=== PATIENT | male | born 1975 | race Caucasian/White ===

== ENCOUNTER 2025-02-15 03:27 | Observation (INO) | payer OTHER, SELFPAY ==
[2025-02-14 20:29] VITALS: BP 144/91
[2025-02-14 21:00] VITALS: BMI 39.9
[2025-02-14 21:01] VITALS: BP 118/77
[2025-02-14 21:09] LABS: % Basophils 0.3 % (0-2); % Eosinophils 4.4 % (0-6); % Immature Granulocytes 0.6 % (0-0.5); % Lymphocytes 29.9 % (20.5-51.1); % Monocytes 8.4 % (1.7-9.3); % Neutrophils 56.4 % (42.2-75.2); Absolute Eosinophils 0.4 10^3/uL (0-0.7); Absolute Immature Granulocytes 0.1 10^3/uL (0-0.05); Absolute Lymphocytes 2.7 10^3/uL (1.2-3.4); Absolute Monocytes 0.8 10^3/uL (0.1-0.6); Absolute Neutrophils 5.1 10^3/uL (1.4-6.5); Hematocrit 43.2 % (39.0-52.0); Hemoglobin 14.8 g/dL (13.0-18.0); Mean Corp Hgb Conc. 34.3 g/dL (33.0-37.0); Mean Corpuscular Hgb 32.2 pg (27.0-31.0); Mean Corpuscular Volume 94.1 fL (80.0-94.0); Mean Platelet Volume 10.6 fL (7.4-10.4); Nucleated Red Blood Cells % 0 % (-); Platelet Count 158 10^3/uL (130-400); Red Blood Cell Count 4.59 10^6/uL (4.70-6.10); Red Cell Dist. Width 13.2 % (11.5-14.5); White Blood Cell Count 9.1 10^3/uL (4.8-10.8)
[2025-02-14 21:33] LABS: ALT (SGPT) 40 U/L (0-50); AST (SGOT) 28 U/L (17-59); Albumin 4.1 g/dl (3.5-5.0); Alkaline Phosphatase 83 U/L (38-126); Blood Urea Nitrogen 11 mg/dl (9-20); Calcium 9.2 mg/dl (8.4-10.2); Carbon Dioxide 37 mmol/L (22-30); Chloride 99 mmol/L (98-107); Estimated Creatinine Clearance > 125 ml/min; Glucose 104 mg/dl (70-99); Lipase 41 U/L (23-300); Potassium 3.9 mmol/L (3.5-5.1); Sodium 142 mmol/L (135-145); Total Bilirubin 0.4 mg/dl (0.2-1.3); Total Protein 6.9 g/dl (6.3-8.2); eGFR > 60.00
--- NOTE | 2025-02-14 21:45 | ED.GENMED ---
History of Present Illness
General
Chief Complaint: Abdominal Pain
Time Seen by Provider: 02/14/25 21:31
History of Present Illness
History of Present Illness:
Patient is a 49-year-old man with history of hypertension hyperlipidemia, diverticulitis, colon polyps presenting to the emergency department with bloody stools. Patient is for the past week has been having lower abdominal pain as well as bloody
bowel movements. It is bright red. He has been having some clots. Intermittent lightheaded dizzy. No nausea vomiting. His last colonoscopy was 2 years ago which did show some colon polyps. No recent travel or antibiotics.
Past History
Past History
ED Past Medical History: Psychiatric and Other (Diverticulitis)
ED Past Surgical History: None
Social History
Tobacco: Smoker
Alcohol: None
Drug: None
Living: with family
Phy Exam
Physical Exam
Physical Exam:
GENERAL: in no acute distress
HEENT: normocephalic, extraocular movements intact, moist oral mucosa
NECK: normal inspection
RESPIRATORY: no respiratory distress, clear to auscultation bilaterally
CARDIOVASCULAR: regular rate and rhythm
ABDOMEN/: soft, non-distended, left lower quadrant tenderness palpation no rebound or guarding
EXTREMITIES: non-tender, no edema/swelling
NEUROLOGIC: awake and alert, moves all extremities
SKIN: warm
Course
Orders/Labs/Results
Orders:
Orders
02/14/25 20:34
Electrocardiogram (*1) Urgent
Reason for Study: Abdominal Pain
EKG- Treatment ONCE
02/14/25 21:02
Complete Blood Count/With Diff Urgent
Comprehensive Metabolic Panel Urgent
Lipase Urgent
02/14/25 21:32
CT Abd/pelvis W Iv Cont Urgent
Comment:
Reason For Exam: abdominal pain, bloody bm, hx divertic
02/14/25 21:58
Urinalysis Reflex To Culture Urgent
Date Specimen was Collected: 02/14/25
Time Specimen was Collected: 20:59
02/15/25 02:48
Admit/Transfer Patient As Directed
Co-Sign Provider:
Level of Care: Observation services
Assign to:: Telemetry
Physician / Group: Harris/hospitalist
Diagnosis: Lower GI bleed, COPD
Reason for Telemetry: Arrhythmia
Date to Stop Telemetry: 02/18/25
Time to Stop Telemetry: 11:00
Reason for Hospitalization: Lower GI bleed, COPD
PRN Pain Medication Management As Directed
May give lesser potent ordered pain med per pt: Yes
preference::
Protocol:: Medication orders for pain may be administered in a
manner that supports deferring to patient preference
when the pt is:
- Requesting an ordered lesser potent pain medication.
Least to most potent pain medications are defined
as: acetaminophen < NSAID < tramadol < opioids
(morphine, oxycodone, hydromorphone).
- Requesting a lesser dose of the same medication IF
ORDERED.
- Requesting a less intrusive route of administration
if both routes are prescribed by the provider (PO <
IV).
02/15/25 02:50
Code Status As Directed
Resuscitation Status: Full Code
02/15/25 02:53
Oxygen Therapy [O2 Therapy] [RESP] Stat
Nasal Cannula Liter Flow: 2 LPM
Titrate/Wean O2 to maintain O2 sat greater than (%): 92
02/15/25 04:58
H&H Q8H
0.9% Sodium Chloride 1000 ml [Nss] 1,000 ml IV 100 mls/hr
Ipratropium/Albuterol Sulfate [Duoneb] 3 ml INH R NOW ONE
Ipratropium/Albuterol Sulfate [Duoneb] 3 ml INH R Q4HPRN PRN
02/15/25 04:58
Consult Notification Routine
Specialty to Notify: Gastroenterology
Date consulting provider notified: 02/15/25
Time consulting provider notified: 08:44
Notified:: Provider
GASTROINTESTINAL CONSULT Routine
Consulting Provider: Denisa Florentino
Was physician already notified: No
Reason for consult: lower GI bleed
Activity As Directed
Activity Level: With Assistance
INT (Intravenous Needle Therapy) As Directed
Comment: Place 2 IV catheters of the largest bore possible until stable
Nursing to Place Non Medication Order As Directed
Physician Order: please have pharmacy perform med rec once able and call Attending to reconcile meds
Above order entered?: Yes
Orthostatic Vital Signs As Directed
Orthostatic VS Frequency: Now
Comment: then every four hours for twenty-four hours
Pneumatic Compression Sleeves As Directed
Type: Knee high
Vital Signs As Directed
Frequency: Per unit guidelines
DX Deep Vein Thrombosis Video Routine
02/15/25 05:18
Prothrombin Time IN AM
02/15/25 Breakfast
NPO
Allow oral meds: Yes
Allow clear liquids: No
02/15/25 12:59
H&H Q8H
02/15/25 20:58
H&H Q8H
02/18/25 11:00
DC Protocol for Telemetry ONCE
Abnormal Lab Results
02/14/25
21:02
RBC 4.59 L 10^6/uL
(4.70-6.10)
MCV 94.1 H fL
(80.0-94.0)
MCH 32.2 H pg
(27.0-31.0)
MPV 10.6 H fL
(7.4-10.4)
Abs Immat Gran (auto) 0.1 H 10^3/uL
(0-0.05)
Absolute Monos (auto) 0.8 H 10^3/uL
(0.1-0.6)
Immature Gran % 0.6 H %
(0-0.5)
Carbon Dioxide 37 H mmol/L
(22-30)
Glucose 104 H mg/dl
(70-99)
02/14/25 21:02
02/14/25 21:02
Vital Signs
Initial and Last Documented VS:
Initial Vital Signs
Temp Pulse Resp BP Pulse Ox
98.6 F 88 24 144/91 94
02/14/25 20:29 02/14/25 20:29 02/14/25 20:29 02/14/25 20:29 02/14/25 20:29
Last Documented Vital Signs
Temp Pulse Resp BP Pulse Ox
97.8 F 70 16 132/74 91
02/15/25 15:15 02/15/25 17:47 02/15/25 17:47 02/15/25 15:15 02/15/25 15:15
MDM/Problems Addressed
Differential Diagnosis Includes:
Patient is a 49-year-old male with history of diverticulitis presenting to the emergency department with bright red bloody vomiting for the past week as well as abdominal pain. Vitals are unremarkable exam does show left lower quadrant tenderness
palpation. Concern for lower GI bleed diverticulitis versus polyps. Given the tenderness we will proceed with CT scan. Blood work does show normal hemoglobin. LFTs are unremarkable. [place] score does recommend admission given patients history.
*Critical Care Note
Total Time (30-74mins, 75-104mins- exclusive of procedures): Not Applicable
Update Note
Update Note:
Patient does state the bleeding is slightly slowed down since he has been here. He still having bloody stools but no clots. Blood pressure remained stable. Discussed with hospitalist accepted patient to their service. CT read pending.
ED Attending Note
-
Portions of this chart may have been created with voice recognition software.� Occasional wrong word or��sound alike� substitutions may have occurred due to the inherent limitations of voice recognition software.
Discharge Plan
Departure
Patient Disposition: Admit
Date of Disposition: 02/15/25
Time of Disposition: 01:48
Presentation/result/management discussed w/ accepting MD/DO: Hospitalist
Discharge Problem:
GI bleed
Interventions
Interventions:
*Risk Screen - Suicide Last Done: 02/15/25 05:34
*General Assessment Last Done: 02/14/25 20:29
*Neglect/Abuse Screening Last Done: 02/14/25 20:29
*ED- Fall Risk Assessment Last Done: 02/14/25 21:06
*ED COVID-19 Vaccine History Last Done: 02/15/25 05:34
*Nursing Disposition Last Done: 02/15/25 04:56
NK-Jkidnp-Xcpecrnyrz Assessment Last Done: 02/14/25 21:06
Discharge Date and Time
Discharge Date/Time: 02/15/25 04:56
[2025-02-14 22:00] VITALS: BP 122/83
[2025-02-14 22:05] LABS: Urine Albumin Negative (Neg - Trace); Urine Bilirubin Negative (Negative); Urine Character Clear (Clear); Urine Color Yellow; Urine Glucose Negative (Negative); Urine Ketone Negative (Negative); Urine Leukocyte Negative (Negative); Urine Nitrite Negative (Negative); Urine Occult Blood Negative (Negative); Urine Specific Gravity 1.015 (<1.030); Urine Urobilinogen Negative (Neg - 1+)
[2025-02-14 23:09] VITALS: BP 122/71
[2025-02-15] VITALS (13 sets, daily range): BP systolic 103–138; BP diastolic 24–82; PULSE 57–90; BMI 38.8
--- NOTE | 2025-02-15 02:34 | HPS.HSE ---
Addendum entered and electronically signed by Emily Iglesias DO 02/15/25 03:05:
# COPD, patient states that he always has wheezing and oxygen that is low, not on home oxygen, oxygen 88 to 89% on room air in the ED
- Start the patient on 2 L nasal cannula and wean per protocol
- DuoNeb now and as needed
- He may require ambulatory oxygen study for home oxygen
Original Note:
Family Physician
-
Family Physician: Lexx Vitale
Chief Complaint
-
Bloody bowel movements
History of Present Illness
Patient is a 49-year-old male with past medical history significant for hypertension, hyperlipidemia, diverticulitis, colon polyps who presented to the emergency department secondary to bloody stools associated with right lower abdominal pain that
has been having for the past 1 week. He notes that stool has bright red blood with some clots associated with intermittent lightheadedness and dizziness. He denies any nausea, vomiting or hematemesis. He had a colonoscopy 2 years prior which
showed colon polyps. No recent travel. No sick contacts. Vitals are stable in the ED, hemoglobin is normal. He's had prior admission for right-sided abdominal pain, colonoscopy in April 2022 performed here showed 5 mm polyp noted in the rectum
that was sessile and was removed with a cold snare, Multiple large mouth diverticulum were noted in the sigmoid and descending colon and nonbleeding internal hemorrhoids also found (prep was noted to be fair). CT a/p performed in ED today, pending
report.
Medical History
Past Medical History
Past Medical History: Reports HTN, Hypercholesterolemia and Other
Additional Past Medical History:
Hypertension
Polysubstance abuse
Mood disorder
Seizure disorder
COPD
Hepatic steatosis
History of hepatosplenomegaly
Past Surgical History: Reports Other (colonoscopy)
Social History
Unable to obtain full social history at this time due to: Other
Family History
Family History: Not pertinent and Other
Allergies / Home Medications
Allergies reflects when Allergies were last updated in [facility].
Home Medications with original date entered in [facility]
Allergy/Medication List:
Allergies
Allergy/AdvReac Type Severity Reaction Status Date / Time
No Known Allergies Allergy Verified 10/06/22 22:28
Home Medications
clonazepam 2 mg tablet (Klonopin) 2 mg PO HS Mental Health/Anxiety 04/22/22
docusate sodium 100 mg capsule (Colace) 100 mg PO BID STOOL SOFTENER 04/22/22
pregabalin 300 mg capsule (Lyrica) 300 mg PO BID Pain 04/22/22
quetiapine 200 mg tablet (Seroquel) 200 mg PO DAILY Mental Health/Anxiety 04/22/22
polyethylene glycol 3350 17 gram oral powder packet 17 grams PO DAILY #30 ea 04/24/22
gemfibrozil 600 mg tablet 600 mg PO DAILY Pain 09/24/22
naloxegol 25 mg tablet (Movantik) 25 mg PO DAILY OPIOID CONSTIPATION 09/24/22
oxycodone 10 mg tablet 10 mg PO QIDPRN PRN pain 09/24/22
oxycodone myristate 13.5 mg capsule sprinkle extend release 12hr(DON'T CRUSH) (Xtampza ER) 13.5 mg PO BID Pain 09/24/22
oxycodone myristate 13.5 mg capsule sprinkle extend release 12hr(DON'T CRUSH) (Xtampza ER) 13.5 mg PO DAILY Pain 09/24/22
quetiapine 300 mg tablet (Seroquel) 300 mg PO HS Mental Health/Anxiety 09/24/22
Review of Systems
-
A 12 point ROS was completed and negative except as noted: Yes
Physical Exam
Vital Signs
Vital Signs
Temp Pulse Resp BP Pulse Ox
98.6 F 71 14 108/61 89
02/14/25 20:29 02/15/25 02:00 02/15/25 02:00 02/15/25 02:00 02/15/25 02:00
Physical Exam
General: Well Developed, Well Nourished, No Apparent Distress, Comfortable and Conversant
HEENT: NormoCephalic and Anicteric (conjunctiva injected b/l)
Respiratory: Wheezes (bilateral)
Cardiac: S1/S2 and Regular Rhythm
GI: Soft and Tender (RLQ, no peritoneal signs)
Musculoskeletal: No Clubbing, No Cyanosis and No Edema
Skin: Warm and Dry
Neuro: AO x 3, No Motor Deficits and Nonfocal/grossly intact
Psych: Calm
Laboratory Results
-
02/14/25 21:02
02/14/25 21:02
Laboratory Results
Total Bilirubin 0.4 mg/dl (0.2-1.3) 02/14/25 21:
AST 28 U/L (17-59) 02/14/25 21:
ALT 40 U/L (0-50) 02/14/25 21:02
Alkaline Phosphatase 83 U/L (38-126) 02/14/25 21:
Lipase 41 U/L (23-300) 02/14/25 21:02
Impression/Plan
-
IMPRESSION:Patient is a 49-year-old male with past medical history significant for hypertension, hyperlipidemia, diverticulitis, colon polyps who presented to the emergency department secondary to bloody stools associated with right lower abdominal
pain that has been having for the past 1 week. He notes that stool has bright red blood with some clots associated with intermittent lightheadedness and dizziness. He denies any nausea, vomiting or hematemesis. He had a colonoscopy 2 years prior
which showed colon polyps. No recent travel. No sick contacts. Vitals are stable in the ED, hemoglobin is normal. He's had prior admission for right-sided abdominal pain, colonoscopy in April 2022 performed here showed 5 mm polyp noted in the
rectum that was sessile and was removed with a cold snare, Multiple large mouth diverticulum were noted in the sigmoid and descending colon and nonbleeding internal hemorrhoids also found (prep was noted to be fair). CT a/p performed in ED today,
pending report.
#Abdominal pain and lower GI bleed
-Admit to telemetry monitoring
-Serial hemoglobin monitoring, hemoglobin is normal range at this time and the patient is hemodynamically stable
-GI consultation appreciated
-IV fluids
-CT of the abdomen pelvis was performed in the emergency department and is pending report
Tobacco use, 1 pack/day
-Patient declines nicotine patch
Essential hypertension
Polysubstance abuse, currently is not using drugs nor alcohol
Mood disorder
Seizure disorder
Medication reconciliation will need to be performed in the morning, the patient does not recall his medications and pharmacy is not available at this time
DVT prophylaxis-SCDs
Full code
[2025-02-15] MEDS: NSS 1000 IV (05:08)
[2025-02-15] MEDS: DUONEB 3 ML INH (05:18)
--- NOTE | 2025-02-15 05:30 | PTCARENOTE ---
Received patient from ED. Patient AAOx3, patient ambulated to the bedside with an assist of one. 2L oxygen. VSS. Patient assessed and oriented to the unit. Patient verbalized to ring for all transfers. Call blackman in reach.
[2025-02-15 06:05] LABS: Hematocrit 44.5 % (39.0-52.0); Hemoglobin 15.2 g/dL (13.0-18.0)
[2025-02-15 06:21] LABS: INR 0.97; PT 13.2 Sec (11.4-14.6)
[2025-02-15] MEDS: SYMBICORT 160/4.5 MCG INHALER 2 PUFF INH ×2 (08:16→17:46)
[2025-02-15] MEDS: SPIRIVA RESPIMAT 2.5 MCG 2 PUFF INH (08:16)
[2025-02-15] MEDS: VENTOLIN NEBULES 2.5 MG INH ×4 (08:48→17:45)
--- NOTE | 2025-02-15 09:30 | CON.GI ---
Consultation
-
Date/Time Consultation Requested: 02/15/25
Date/Time Consultation Performed: 02/15/25
Requesting Provider:
Performing Provider:
Reason for Consultation:
Medical History
Chief Complaint / HPI
Chief Complaint: Abdominal pain and rectal bleeding
History of Present Illness:
49-year-old male, smoker, history of COPD, seizure ds, presenting with complaints of right lower quadrant abdominal discomfort past week, reports it is sharp pain, somewhat worse after eating but no association with bowel movements. He reports that
he also has been having some rectal bleeding in the last couple of days, bright blood, multiple episodes as per patient but since admission, no documented bowel movements. No nausea or vomiting. Denies any heartburn or trouble swallowing. On
reviewing records, history of opioid-induced constipation and takes Colace and Movantik. Reports he must have lost a couple of pounds. No NSAID use.
On admission, hemoglobin is stable, no leukocytosis. CMP in normal limits as well.
Pt was sleepy during the consultation and could not get a full history but will get more details on h/o constipation when he is more awake.
Patient was admitted to [facility] with similar complaints of abdominal pain in the right lower quadrant in 2022, CT scan at that time showed possible colonic lesions in the right and proximal transverse colon, subsequent colonoscopy with
fair prep showed diverticulosis, internal hemorrhoids and 5 mm rectal polyp. Repeat for suggested in 1 year but has not done it yet.
Past Medical History
Past Medical History: COPD, HTN, Hypercholesterolemia and Psychiatric (fatty liver)
Past Surgical History: None
Social History
Tobacco: Smoker
Alcohol: None
Family History
Family History: Other (No FH of colon cancer)
Allergies / Home Medications
Allergy/AdvReac Type Severity Reaction Status Date / Time
No Known Allergies Allergy Verified 10/06/22 22:28
�Medication �Instructions �Recorded
clonazepam 2 mg tablet (Klonopin) 2 mg PO HS Mental Health/Anxiety 04/22/22
docusate sodium 100 mg capsule 100 mg PO BID STOOL SOFTENER 04/22/22
(Colace)
pregabalin 300 mg capsule (Lyrica) 300 mg PO BID Pain 04/22/22
gemfibrozil 600 mg tablet 600 mg PO DAILY Pain 09/24/22
naloxegol 25 mg tablet (Movantik) 25 mg PO DAILY OPIOID CONSTIPATION 09/24/22
buprenorphine 8 mg-naloxone 2 mg tab sublingual 02/15/25
sublingual tablet
omeprazole 40 mg capsule,delayed 40 mg PO TID 02/15/25
release
ondansetron 4 mg disintegrating 4 mg PO Q6H PRN nausea 02/15/25
tablet
Review of Systems
-
All other systems: A 12 pt ROS was Negative except as stated above in HPI
Musculoskeletal: Reports Joint Pain
Vital Signs
Temp Pulse Resp BP Pulse Ox
97.8 F 74 16 131/78 91
02/15/25 07:15 02/15/25 08:50 02/15/25 08:50 02/15/25 07:15 02/15/25 08:50
Physical Exam
Exam
General: Well Developed
HEENT: Normocephalic
Cardiac: S1/S2
GI: Soft, Non Distended and Tender (some discomfort on palpation in the lower abdomen, right and left quadrants without any guarding/rigidity)
Results
WBC 9.1 10^3/uL (4.8-10.8) 02/14/25 21:02
Hgb 15.2 g/dL (13.0-18.0) 02/15/25 04:58
Hct 44.5 % (39.0-52.0) 02/15/25 04:58
MCV 94.1 fL (80.0-94.0) H 02/14/25 21:02
Plt Count 158 10^3/uL (130-400) 02/14/25 21:02
Absolute Neuts (auto) 5.1 10^3/uL (1.4-6.5) 02/14/25 21:02
PT 13.2 Sec (11.4-14.6) 02/15/25 05:18
INR 0.97 02/15/25 05:18
Sodium 142 mmol/L (135-145) 02/14/25 21:02
Potassium 3.9 mmol/L (3.5-5.1) 02/14/25 21:02
Chloride 99 mmol/L (98-107) 02/14/25 21:02
Carbon Dioxide 37 mmol/L (22-30) H 02/14/25 21:02
BUN 11 mg/dl (9-20) 02/14/25 21:02
Creatinine 0.8 mg/dL (0.7-1.3) 02/14/25 21:02
Calcium 9.2 mg/dl (8.4-10.2) 02/14/25 21:02
Total Bilirubin 0.4 mg/dl (0.2-1.3) 02/14/25 21:02
AST 28 U/L (17-59) 02/14/25 21:02
ALT 40 U/L (0-50) 02/14/25 21:02
Alkaline Phosphatase 83 U/L (38-126) 02/14/25 21:02
Lipase 41 U/L (23-300) 02/14/25 21:02
Diagnostic Image Results:
Prior GI Procedures:
EGD:
Colonoscopy:
Assessment / Plan
-
49-year-old male, smoker with history of hypertension, high cholesterol, COPD, seizure disorder presenting with complaints of right lower quadrant abdominal discomfort and also some rectal bleeding. Hemoglobin stable, currently he is
hemodynamically stable, normal white count. History of opioid-induced constipation on Movantik.
- Abdominal pain, unclear etiology, await CT scan report that was already done to rule out diverticulitis.
On exam, some discomfort on palpation in the lower abdomen without any guarding or rigidity.
Will monitor.
- Rectal bleeding, rule out diverticular versus other
Monitor H&H and transfuse as needed.
He was supposed to have colonoscopy in 2022 as prior colonoscopy had fair prep, if rectal bleeding continues, we will schedule him for inpatient colonoscopy.
-Chronic opioid-induced constipation on Movantik
Will follow
-
-
Thank you for consultation and allowing me to participate in the patient's care. Please call the refrigeration engineer GI physician during the after hours with any questions or concerns.
--- NOTE | 2025-02-15 10:52 | CM ---
CM following re: discharge planning.
Reviewed pt's chart, met with pt.
Pt is a 49 year old male, admitted with OBS status and primary dx of Lower GIB. OBS status explained to the pt, pt expressed his understanding, declined to sign, has a copy. OBS letter placed on chart.
Pt reports he lives with father in an apartment and pt described himself as independent in all areas [employer].
PCP: Lexx Vitale
Pharmacy: [facility]
D/c plan: home with anticipated no needs. Father to transport.
CM will follow with discharge plan updates as hospitalization progresses
--- NOTE | 2025-02-15 12:27 | W.PN.UPDATE ---
Update Note
Progress Note Update
Nonbillbale note
1. GI bleed - possible diverticular hemorrhoidal in nature. Follow-up hemoglobin level as stable. A CT abdomen pelvis IV contrast ordered by GI. Follow-up result.
2. Rule out toxic metabolic encephalopathy -patient with somnolent, question of possible encephalopathy. Does take Klonopin at home of 1 mg in the morning and 2 mg in the evening, will continue to avoid any withdrawal. Patient on gabapentin
which we will hold for today. Check urine drug screen
3. History of polysubstance abuse -patient on Suboxone sublingual film, transition to Subutex 8 mg 3 times daily, PDMP reviewed
4. History of seizures/ataxia -denies any recent episode/fall. Not using walker or cane. Patient apparently driving as well
[2025-02-15 13:37] LABS: Hematocrit 41.9 % (39.0-52.0); Hemoglobin 14.5 g/dL (13.0-18.0)
[2025-02-15] MEDS: SUBUTEX 8 MG SL (15:12)
[2025-02-15 16:08] LABS: Amphetamines Negative (Negative); Barbiturates Negative (Negative); Benzodiazepines Negative (Negative); Buprenorphine Positive (Negative); Cocaine Negative (Negative); Marijuana Negative (Negative); Methadone Negative (Negative); Methamphetamines Negative (Negative); Opiates Negative (Negative); Phencyclidine Negative (Negative); Tricyclic Antidepressants Negative (Negative)
[2025-02-15 16:28] LABS: Fentanyl, Urine Negative (Negative)
--- NOTE | 2025-02-15 17:20 | PTCARENOTE ---
Patients sinus tamanna on monitor while sleeping. Hr in low 40s. Patient wearing 2 L NC. Md made aware. No new orders at this time.
[2025-02-15 21:24] LABS: Hemoglobin 14.5 g/dL (13.0-18.0)
[2025-02-15] MEDS: KLONOPIN 2 MG PO (21:39)
[2025-02-15] MEDS: SUBUTEX SL (21:42)
[2025-02-16 03:17] VITALS: BP 123/78
[2025-02-16] MEDS: SYMBICORT 160/4.5 MCG INHALER 2 PUFF INH (07:26)
[2025-02-16] MEDS: VENTOLIN NEBULES 2.5 MG INH (07:26)
[2025-02-16] MEDS: SPIRIVA RESPIMAT 2.5 MCG 2 PUFF INH (07:27)
[2025-02-16 07:48] VITALS: BP 152/86
--- NOTE | 2025-02-16 08:22 | W.PN.HOSP.TC ---
Today's Communication/Plan
-
Discharge today
Assessment / Plan
Assessment / Plan
Physical Exam
General: Well Developed, Well Nourished, No Apparent Distress, Comfortable and Conversant
HEENT: Normocephalic and Anicteric
Respiratory: CTAB
Cardiac: S1/S2 and Regular Rhythm
GI: Soft and Nontender. Positive bowel sounds.
Musculoskeletal: No Cyanosis and No Edema
Skin: Warm and Dry
Neuro: AO x 3, No Motor Deficits and Nonfocal/grossly intact
Psych: Calm
Assessment/Plan
49-year-old male with past medical history significant for hypertension, hyperlipidemia, diverticulitis, colon polyps who presented to the emergency department secondary to bloody stools associated with right lower abdominal pain that has been
having for the past 1 week prior to presentation. He noted that stool has bright red blood with some clots associated with intermittent lightheadedness and dizziness. He denied any nausea, vomiting or hematemesis. He had a colonoscopy 2 years prior
which showed colon polyps. No recent travel. No sick contacts. Vitals were stable in the ED, hemoglobin was normal. He's had prior admission for right-sided abdominal pain, colonoscopy in April 2022 performed here showed 5 mm polyp noted in the
rectum that was sessile and was removed with a cold snare, Multiple large mouth diverticulum were noted in the sigmoid and descending colon and nonbleeding internal hemorrhoids also found (prep was noted to be fair). CT a/p performed in ED.
#Abdominal pain and lower GI bleed -- suspected hemorrhoidal versus diverticular
-Admit to telemetry monitoring
-Serial hemoglobin monitoring, hemoglobin is normal range at this time and the patient is hemodynamically stable
-GI consultation appreciated: I communicated with Dr. Florentino via [place] Text communication today and she said okay to discharge patient today and follow-up with GI appointment as an outpatient
-CT of the abdomen pelvis was performed in the emergency department and showed: fatty liver, redundant sigmoid colon with diverticulosis, tiny fat-only containing umbilical hernia (I confirmed with radiologist Dr. Aly that IV contrast WAS given)
#Somnolence
-Improved
-Resume Gabapentin outpatient, monitor for drowsiness
-UDS positive for Buprenorphine; patient takes Suboxone at home
-Patient says he does not tolerate Subutex and wants his home Suboxone and wants to go home to continue his Suboxone there
#History of seizures/ataxia -denies any recent episode/fall. Not using walker or cane. Patient apparently driving as well
Tobacco use, 1 pack/day
-Patient declines nicotine patch
Essential hypertension
Polysubstance abuse, currently is not using drugs nor alcohol
Mood disorder
Seizure disorder
# COPD, patient states that he always has wheezing and oxygen that is low, not on home oxygen, oxygen 88 to 89% on room air in the ED
- No saturating in the 90s on room air
- DuoNeb now and as needed
DVT prophylaxis-SCDs
Full code
I spoke to patient's father Ben today; Ben will drive patient home today.
More than 30 minutes spent in discharge including
Final examination of the patient
Summarizing hospital stay
Instructions for continuing care to all relevant caregivers
Preparation of discharge records, prescriptions, and referral forms
Total time spent (in minutes): 39
Anticipated Discharge: Today
Subjective/Interval History
-
Date of Service: February 16, 2025
Patient was seen and examined. He denied any further rectal bleeding and said he wants to go home.
Objective Data
-
Labs:
Laboratory Results
02/15/25
21:15
Hgb 14.5
Hct 42.0
Vital Signs:
Vital Signs
Temp Pulse Resp BP Pulse Ox
97.9 F 61 18 152/86 92
02/16/25 07:48 02/16/25 07:48 02/16/25 07:48 02/16/25 07:48 02/16/25 07:48
I&O
02/15/25 02/16/25 02/17/25
06:59 06:59 06:59
Intake Total 180 / 180
Balance 180 / 180
[2025-02-16] MEDS: KLONOPIN 1 MG PO (09:25)
[2025-02-16] MEDS: SUBUTEX SL (09:27)
--- NOTE | 2025-02-16 09:52 | PTCARENOTE ---
Patient refused am care, orthostatics, and Subutex as ordered. made aware. Dr. Sterling at pt bedside now. no s/s of distress noted. plan of care ongoing.
[2025-02-16 11:23] VITALS: BP 125/78
[2025-02-16] MEDS: VENTOLIN NEBULES INH (11:27)
--- NOTE | 2025-02-16 11:50 | W.DCSUMMARY ---
Discharge Summary
Discharge Data
Date of Admission: 02/15/25
Date of Discharge: 02/16/25
Total time spent discharging patient (in min): 39
-
Pending Results: No
Hospital Course
49-year-old male with past medical history significant for opioid-induced constipation (on Movantik), hypertension, hyperlipidemia, diverticulitis, colon polyps who presented to the emergency department secondary to bloody stools associated with
right lower abdominal pain. Patient's hemoglobin was normal. He was given intravenous fluids. Gastroenterology was consulted. CT Abdomen Pelvis was ordered and showed as per radiologist's report: mild hepatomegaly with findings compatible with
diffuse fatty liver, redundant sigmoid colon with diverticulosis, no intestinal obstruction or free air and tiny fat only containing umbilical hernia. Patient was noted to be somnolent, and his gapapentin was held, but his Klonopin was continued to
avoid withdrawal. Patient asked for Suboxone which was not available, and he did not want Subutex as he reported he could not tolerate it. Patient reported that his bleeding and abdominal pain resolved and that he wanted to go home. Patient's father
came to the hospital and picked up the patient and drive him home.
Discharge Plan
-
Patient Disposition: Home (Routine Discharge)
Discharge Diagnosis/Procedures: #Abdominal pain and lower GI bleed -- suspected hemorrhoidal versus diverticular
#Somnolence - improved
#History of seizures/ataxia
#Tobacco use, 1 pack/day
#Essential hypertension
#History of Polysubstance abuse
#Mood disorder
#Seizure disorder
#COPD
#Suspected Diffuse Fatty Liver with mild hepatomegaly
#Redundant sigmoid colon with diverticulosis
#Tiny fat only containing umbilical hernia
Condition: Good
Diet: As tolerated
Activity: As tolerated
Driving Restrictions: Not until seen by your Dr
Activity Restrictions/Additional Instructions:
Your Lyrica was held in the hospitalization due to drowsiness. You may want to consider resuming it at a lower dose first (for example, 300 mg daily) at home to reduce the likelihood of you getting drowsy.
Return to the ER if you get drowsy, dizzy, chest pain, shortness of breath, fatigue, or any other new symptom.
Instructions: Budesonide and Formoterol
Referrals:
Sherri Cutler MD [Active, Gastroenterology]
Referral Note: call to arrange 4-6 week follow up [address] Cutler or CHALINO.
Clay Mckeon MD [Active, Pulmonary Medicine] - in less than 1 week
Referral Note: COPD -- may need home oxygen therapy
Lexx Vitale DO [Primary Care Provider, [facility]] - in less than 1 week
Referral Note: Hospital Follow-Up
Additional Discharge Medication Instructions: Symbicort is a new medication. You need to see a block chopper hand as soon as possible.
Prescriptions:
New
budesonide-formoterol [Symbicort] 160-4.5 mcg/actuation HFA aerosol inhaler
2 puff inhalation BID Qty: 10.2 0RF
Continued
clonazepam [Klonopin] 2 mg Tablet
2 mg PO HS
docusate sodium [Colace] 100 mg Capsule
100 mg PO BID
pregabalin [Lyrica] 300 mg Capsule
300 mg PO BID
gemfibrozil 600 mg Tablet
600 mg PO DAILY
Movantik 25 mg Tablet
25 mg PO DAILY
Rx Instructions:
must be taken on empty stomach; no food 1 hr after or 2-3 hrs before dose
omeprazole 40 mg Capsule,Delayed Release(Dr/Ec)
40 mg PO TID
ondansetron 4 mg Tablet,Disintegrating
4 mg PO Q6H PRN (Reason: nausea )
buprenorphine-naloxone 8-2 mg Tablet, Sublingual
SUBLINGUAL
Discharge Orders:
Discharge Patient (As Directed); Ordered 02/16/25
Ordered By: Segundo Ovalle
Discharge Date and Time
Discharge Date/Time: 02/16/25 12:15
Print Language: [place]
--- NOTE | 2025-02-16 11:56 | CM ---
Patient has been medically cleared for discharge to home with no additional skilled services. Father will transport home. Patient's car is on grounds. Father will make arrangements to have car transported to home at a later date.
--- NOTE | 2025-02-16 12:19 | W.PN.UPDATE ---
Update Note
Progress Note Update
message sent to arrange 4-6 week follow up appt.
--- NOTE | 2025-02-16 12:20 | PTCARENOTE ---
Patient and his dad made aware. pt can't drive until seen by his outpatient doctor as per
== END 2025-02-16 12:15 | disposition home or self-care (01) ==
LOC: 2 NORTH 03:27
PROVIDERS: Hospitalist; ADMITTING PHYSICIAN Internal Medicine; ATTENDING PHYSICIAN Hospitalist; CONSULT PHYSICIAN Internal Medicine Gastroenterology; EMERGENCY PHYSICIAN Student in an Organized Health Care Education/Training Program; PRIMARYCARE PHYSICIAN Family Medicine
DX: K92.1 Melena (principal); R10.9 Unspecified abdominal pain; K57.30 Diverticulosis of large intestine without perforation or abscess without bleeding; I10 Essential (primary) hypertension; E78.00 Pure hypercholesterolemia, unspecified; R42 Dizziness and giddiness; F17.210 Nicotine dependence, cigarettes, uncomplicated; K42.9 Umbilical hernia without obstruction or gangrene; R40.0 Somnolence; J44.9 Chronic obstructive pulmonary disease, unspecified; F19.11 Other psychoactive substance abuse, in remission; K76.0 Fatty (change of) liver, not elsewhere classified; R16.2 Hepatomegaly with splenomegaly, not elsewhere classified; G40.909 Epilepsy, unspecified, not intractable, without status epilepticus; K59.03 Drug induced constipation; T40.2X5A Adverse effect of other opioids, initial encounter; Y92.9 Unspecified place or not applicable; Z87.19 Personal history of other diseases of the digestive system; Z86.0100 Personal history of colon polyps, unspecified
CPT/HCPCS: 74177; 80053; 80306; 80307; 81003; 83690; 85014; 85018; 85025; 85610; 93005; 94640; 99285; G0378; Q9967

== ENCOUNTER 2025-06-24 03:57 | Inpatient (IN) | payer OTHER, SELFPAY ==
[2025-06-23 18:15] VITALS: BP 151/105
[2025-06-23 18:55] LABS: ALT (SGPT) 29 U/L (0-50); AST (SGOT) 22 U/L (17-59); Albumin 4.7 g/dl (3.5-5.0); Alkaline Phosphatase 95 U/L (38-126); Blood Urea Nitrogen 10 mg/dl (9-20); Calcium 9.6 mg/dl (8.4-10.2); Carbon Dioxide 38 mmol/L (22-30); Chloride 97 mmol/L (98-107); Glucose 101 mg/dl (70-99); Potassium 4.2 mmol/L (3.5-5.1); Sodium 141 mmol/L (135-145); Total Protein 7.7 g/dl (6.3-8.2); eGFR > 60.00
[2025-06-23 19:00] LABS: Hematocrit 48.9 % (39.0-52.0); Hemoglobin 16.1 g/dL (13.0-18.0); Mean Corp Hgb Conc. 32.9 g/dL (33.0-37.0); Mean Corpuscular Volume 91.9 fL (80.0-94.0); Nucleated Red Blood Cells % 0 % (-); Platelet Count 209 10^3/uL (130-400); Red Cell Dist. Width 14.1 % (11.5-14.5)
[2025-06-23 22:51] VITALS: BP 143/95
[2025-06-23 23:00] VITALS: BP 134/94
--- NOTE | 2025-06-23 23:08 | ED.GENMED ---
History of Present Illness
<Solange Bernal PA-C - Last Filed: 06/24/25 07:57>
General
Chief Complaint: Rectal Bleeding
Source: patient
Exam Limitations: none
Time Seen by Provider: 06/23/25 23:03
Nursing documentation reviewed up to this point in time: agreed with
History of Present Illness
History of Present Illness:
Note:
CHIEF COMPLAINT(S)
Abdominal pain and rectal bleeding for the past few days.
HISTORY OF PRESENT ILLNESS
The patient is a 49-year-old male presenting with abdominal pain and rectal bleeding over the past few days. The abdominal pain has been described as severe, primarily localized to the right lower abdomen. The patient reports that the symptoms have
worsened, prompting this visit. He has experienced similar episodes of bleeding previously, but notes this episode as the worst. He denies taking any blood thinners.
The patient also reports occasional dizziness and shortness of breath, and mentions feeling sweaty. He denies fever but has experienced discomfort in the chest and shortness of breath at times.
The bleeding occurs primarily during bowel movements, with significant amounts described during such events. The patient mentions it as being quite distressing. A history of possible diverticula was mentioned as a potential cause during a prior
evaluation.
The patient denies any recent contact with individuals who are ill and reports no surgical history concerning his abdomen. He is followed by a gristmill operator, Dr. Cordero, located in [facility].
The pain occasionally radiates to the back but is primarily localized. Eating and drinking exacerbate the symptoms, although the patient denies any vomiting.
PHYSICAL EXAM
General: Alert, no acute distress. He appears older than stated age, chronically ill.
Skin: Warm, dry.
Head: Normocephalic, atraumatic.
Neck: Supple, trachea midline.
Eyes, ears, nose, mouth, and throat: Oral mucosa moist.
Cardiovascular: Regular rate and rhythm, no murmurs. Normal peripheral perfusion, no edema.
Respiratory: Respirations are non-labored. No wheezes, rales, or rhonchi
Gastrointestinal: Abdomen is nondistended; tenderness noted in the right lower quadrant and central abdominal area. No guarding no rebound tenderness.
Back: Normal range of motion, normal alignment.
Musculoskeletal: Normal range of motion, normal strength.
Neurological: Alert and oriented to person, place, time, and situation. No focal neurological deficit observed.
Psychiatric: Cooperative, appropriate mood and affect.
PLAN
1. Administer pain medication.
2. Conduct a rectal examination to assess the degree of bleeding and check for possible hemorrhoids.
3. Schedule a CT scan of the abdomen to further investigate the cause of pain and bleeding.
4. Continue monitoring for signs of increased bleeding or hemodynamic instability.
DIFFERENTIAL DIAGNOSIS
The Differential Diagnosis includes, in no particular order and is not limited to:
1. Diverticulosis/Diverticulitis
2. Hemorrhoids
3. Gastrointestinal bleeding of unknown origin
4. Colitis
5. Crohns disease
6. Ulcerative colitis
7. Inflammatory bowel disease
8. Colorectal cancer
9. Peptic ulcer disease
10. Infectious gastroenteritis
Disposition:
SUMMARY OF ENCOUNTER
The patient is a 49-year-old male with a history of COPD, hypertension, and diverticulosis, presenting to the emergency department with several days of rectal bleeding and abdominal pain. He has a history of prior admissions for gastrointestinal
bleeding, attributed previously to diverticulosis. The patient denies fevers and urinary symptoms. Examination reveals a well-appearing male with heme-positive stool. Laboratory tests indicate mild leukocytosis. A CT scan of the abdomen shows no
acute intra-abdominal abnormalities. Given his [place] score of 9, the decision was made to admit him for monitoring of hemoglobin levels and a gastroenterology consultation.
DISPOSITION
Admit
ASSESSMENT
The patient is experiencing gastrointestinal bleeding, likely secondary to diverticulosis, given his history and current presentation.
EMERGENCY TREATMENTS ADMINISTERED
Pain medication was administered for abdominal pain.
MANAGEMENT OF THE PATIENTS CARE WAS DISCUSSED WITH
Case discussed with ED attending.
PLAN
The patient will be admitted for ongoing evaluation and monitoring of hemoglobin levels. A consultation with a gristmill operator will be arranged.
INDEPENDENT REVIEW OF LABS AND INTERPRETATION OF TESTS
My independent review of CBC indicates mild leukocytosis. My independent interpretation of the CT scan shows no acute intra-abdominal abnormalities.
MEDICAL DECISION MAKING
1. Number and Complexity of Problems Addressed:
Chronic conditions affecting care: COPD, hypertension, diverticulosis.
Differential Diagnosis: Diverticulosis/Diverticulitis, Hemorrhoids, Gastrointestinal bleeding of unknown origin, Colitis, Crohns disease, Ulcerative colitis, Inflammatory bowel disease, Colorectal cancer, Peptic ulcer disease, Infectious
gastroenteritis.
2. Data:
Category 1
- My independent interpretation of the CT scan shows no acute intra-abdominal abnormalities.
Category 3
- Discussion of management with ED attending.
3. Risk:
Given the patients presentation with gastrointestinal bleeding and prior history, the decision to admit for close monitoring was made. Risks include potential for significant blood loss and hemodynamic instability if not monitored closely.
DIAGNOSIS
Gastrointestinal bleeding, likely secondary to diverticulosis (K57.30)
Leukocytosis, unspecified (D72.829)
Past History
<Solange Bernal PA-C - Last Filed: 06/24/25 07:57>
Past History
ED Past Medical History: Psychiatric and Other (Diverticulitis)
ED Past Surgical History: None
Social History
Tobacco: Smoker
Alcohol: None
Drug: None
Living: with family
Review of Systems
<Solange Bernal PA-C - Last Filed: 06/24/25 07:57>
Review of Systems
All Other Systems: ROS reviewed and negative except as documented in HPI and ROS
Phy Exam
<Solange Bernal PA-C - Last Filed: 06/24/25 07:57>
Physical Exam
Physical Exam:
see hpi
Course
<Solange Bernal PA-C - Last Filed: 06/24/25 07:57>
Orders/Labs/Results
Orders:
Orders
06/23/25 18:24
Complete Blood Count/With Diff Urgent
Comprehensive Metabolic Panel Urgent
Lipase Urgent
Comment: ADD ON
06/23/25 23:19
Add On- LAB Urgent
Tests Added?: lipase
06/23/25 23:20
0.9% Sodium Chloride 500 ml [Nss] 500 ml IV BOLUS
Acetaminophen [Tylenol] 1,000 mg PO NOW STA
06/24/25
CT Abd/pelvis W Iv Cont Urgent
Reason For Exam: RLQ pain, rectal bleeding
06/24/25 03:10
Pantoprazole [Protonix IV] 40 mg IV NOW STA
06/24/25 03:11
Famotidine [Pepcid] 20 mg IV NOW STA
06/24/25 03:39
Admit/Transfer Patient As Directed
Co-Sign Provider:
Level of Care: Inpatient admission
Assign to:: Telemetry
Physician / Group: Jhony
Diagnosis: Rectal Bleeding, Abd Pain
Reason for Telemetry: Arrhythmia
Date to Stop Telemetry: 06/27/25
Time to Stop Telemetry: 11:00
Reason for Hospitalization: Rectal Bleeding, Abd Pain
Expected length of stay greater than two midnights?: Yes
ELOS- Estimated Length of Stay in days: 2
I certify the patient meets the requirements for IP care: Yes
06/24/25 03:40
PRN Pain Medication Management As Directed
May give lesser potent ordered pain med per pt: Yes
preference::
Protocol:: Medication orders for pain may be administered in a
manner that supports deferring to patient preference
when the pt is:
- Requesting an ordered lesser potent pain medication.
Least to most potent pain medications are defined
as: acetaminophen < NSAID < tramadol < opioids
(morphine, oxycodone, hydromorphone).
- Requesting a lesser dose of the same medication IF
ORDERED.
- Requesting a less intrusive route of administration
if both routes are prescribed by the provider (PO <
IV).
06/24/25 03:42
Code Status As Directed
Resuscitation Status: Full Code
06/24/25 04:51
Acetaminophen [Tylenol] 650 mg PO Q4HPRN PRN
Albuterol Nebs [Ventolin Nebules] 2.5 mg INH R Q4HPRN PRN
06/24/25 04:51
Consult Notification Routine
Specialty to Notify: Gastroenterology
Date consulting provider notified: 06/24/25
Time consulting provider notified: 07:38
Notified:: Provider
GASTROINTESTINAL CONSULT Routine
Consulting Provider: Dorcas Mckeon
Was physician already notified: No
Reason for consult: Rectal Bleeding
Activity As Directed
Activity Level: Ambulate
With Assistance
I/O [Intake/ Output] As Directed
Frequency: Per unit guidelines
Orthostatic Vital Signs As Directed
Orthostatic VS Frequency: BID
Pneumatic Compression Sleeves As Directed
Type: Knee high
Vital Signs As Directed
Frequency: Per unit guidelines
Weight As Directed
Frequency: Daily
Oxygen Therapy [O2 Therapy] [RESP] Routine
Titrate/Wean O2 to maintain O2 sat greater than (%): 94
DX Deep Vein Thrombosis Video Routine
06/24/25 Breakfast
NPO
Allow oral meds: Yes
Allow clear liquids: Sips of Clears
06/24/25 06:04
Basic Metabolic Panel IN AM
Complete Blood Count/No Diff IN AM
06/24/25 08:00
Buprenorphine [Subutex] 1 mg SL BID
Clonazepam [Klonopin] 1 mg PO TID
Docusate W/Senna [Senokot-S] 1 tablet PO BID
Duloxetine Delayed Release [Cymbalta Delayed Release] 60 mg PO BID
Ipratropium/Albuterol Sulfate [Duoneb] 3 ml INH R QID
Naloxegol Oxalate [Movantik] 25 mg PO DAILY
Pantoprazole [Protonix IV] 40 mg IV DAILY
Pregabalin [Lyrica] 300 mg PO BID
06/24/25 22:00
Mirtazapine [Remeron] 30 mg PO HS
06/27/25 11:00
DC Protocol for Telemetry ONCE
Abnormal Lab Results
06/23/25
18:24
WBC 11.5 H 10^3/uL
(4.8-10.8)
MCHC 32.9 L g/dL
(33.0-37.0)
MPV 11.5 H fL
(7.4-10.4)
Abs Immat Gran (auto) 0.1 H 10^3/uL
(0-0.05)
Absolute Monos (auto) 1.1 H 10^3/uL
(0.1-0.6)
Immature Gran % 0.8 H %
(0-0.5)
Monocytes % 9.5 H %
(1.7-9.3)
Chloride 97 L mmol/L
(98-107)
Carbon Dioxide 38 H mmol/L
(22-30)
Glucose 101 H mg/dl
(70-99)
06/23/25 18:24
06/23/25 18:24
Vital Signs
Initial and Last Documented VS:
Initial Vital Signs
Temp Pulse Resp BP Pulse Ox
98 F 112 18 151/105 95
06/23/25 18:15 06/23/25 18:15 06/23/25 18:15 06/23/25 18:15 06/23/25 18:15
Last Documented Vital Signs
Temp Pulse Resp BP Pulse Ox
98 F 85 15 140/101 93
06/23/25 18:15 06/24/25 06:00 06/24/25 06:00 06/24/25 06:00 06/24/25 06:00
<Charlie James, DO - Last Filed: 06/24/25 03:11>
Orders/Labs/Results
Orders:
Orders
06/23/25 18:24
Complete Blood Count/With Diff Urgent
Comprehensive Metabolic Panel Urgent
Lipase Urgent
Comment: ADD ON
06/23/25 23:19
Add On- LAB Urgent
Tests Added?: lipase
06/23/25 23:20
0.9% Sodium Chloride 500 ml [Nss] 500 ml IV BOLUS
Acetaminophen [Tylenol] 1,000 mg PO NOW STA
06/24/25
CT Abd/pelvis W Iv Cont Urgent
Reason For Exam: RLQ pain, rectal bleeding
06/24/25 03:10
Pantoprazole [Protonix IV] 40 mg IV NOW STA
06/24/25 03:11
Famotidine [Pepcid] 20 mg IV NOW STA
06/24/25 03:39
Admit/Transfer Patient As Directed
Co-Sign Provider:
Level of Care: Inpatient admission
Assign to:: Telemetry
Physician / Group: Jhony
Diagnosis: Rectal Bleeding, Abd Pain
Reason for Telemetry: Arrhythmia
Date to Stop Telemetry: 06/27/25
Time to Stop Telemetry: 11:00
Reason for Hospitalization: Rectal Bleeding, Abd Pain
Expected length of stay greater than two midnights?: Yes
ELOS- Estimated Length of Stay in days: 2
I certify the patient meets the requirements for IP care: Yes
06/24/25 03:40
PRN Pain Medication Management As Directed
May give lesser potent ordered pain med per pt: Yes
preference::
Protocol:: Medication orders for pain may be administered in a
manner that supports deferring to patient preference
when the pt is:
- Requesting an ordered lesser potent pain medication.
Least to most potent pain medications are defined
as: acetaminophen < NSAID < tramadol < opioids
(morphine, oxycodone, hydromorphone).
- Requesting a lesser dose of the same medication IF
ORDERED.
- Requesting a less intrusive route of administration
if both routes are prescribed by the provider (PO <
IV).
06/24/25 03:42
Code Status As Directed
Resuscitation Status: Full Code
06/24/25 04:51
Acetaminophen [Tylenol] 650 mg PO Q4HPRN PRN
Albuterol Nebs [Ventolin Nebules] 2.5 mg INH R Q4HPRN PRN
06/24/25 04:51
Consult Notification Routine
Specialty to Notify: Gastroenterology
Date consulting provider notified: 06/24/25
Time consulting provider notified: 07:38
Notified:: Provider
GASTROINTESTINAL CONSULT Routine
Consulting Provider: Dorcas Mckeon
Was physician already notified: No
Reason for consult: Rectal Bleeding
Activity As Directed
Activity Level: Ambulate
With Assistance
I/O [Intake/ Output] As Directed
Frequency: Per unit guidelines
Orthostatic Vital Signs As Directed
Orthostatic VS Frequency: BID
Pneumatic Compression Sleeves As Directed
Type: Knee high
Vital Signs As Directed
Frequency: Per unit guidelines
Weight As Directed
Frequency: Daily
Oxygen Therapy [O2 Therapy] [RESP] Routine
Titrate/Wean O2 to maintain O2 sat greater than (%): 94
DX Deep Vein Thrombosis Video Routine
06/24/25 Breakfast
NPO
Allow oral meds: Yes
Allow clear liquids: Sips of Clears
06/24/25 06:04
Basic Metabolic Panel IN AM
Complete Blood Count/No Diff IN AM
06/24/25 08:00
Buprenorphine [Subutex] 1 mg SL BID
Clonazepam [Klonopin] 1 mg PO TID
Docusate W/Senna [Senokot-S] 1 tablet PO BID
Duloxetine Delayed Release [Cymbalta Delayed Release] 60 mg PO BID
Ipratropium/Albuterol Sulfate [Duoneb] 3 ml INH R QID
Naloxegol Oxalate [Movantik] 25 mg PO DAILY
Pantoprazole [Protonix IV] 40 mg IV DAILY
Pregabalin [Lyrica] 300 mg PO BID
06/24/25 22:00
Mirtazapine [Remeron] 30 mg PO HS
06/27/25 11:00
DC Protocol for Telemetry ONCE
Abnormal Lab Results
06/23/25
18:24
WBC 11.5 H 10^3/uL
(4.8-10.8)
MCHC 32.9 L g/dL
(33.0-37.0)
MPV 11.5 H fL
(7.4-10.4)
Abs Immat Gran (auto) 0.1 H 10^3/uL
(0-0.05)
Absolute Monos (auto) 1.1 H 10^3/uL
(0.1-0.6)
Immature Gran % 0.8 H %
(0-0.5)
Monocytes % 9.5 H %
(1.7-9.3)
Chloride 97 L mmol/L
(98-107)
Carbon Dioxide 38 H mmol/L
(22-30)
Glucose 101 H mg/dl
(70-99)
06/23/25 18:24
06/23/25 18:24
Vital Signs
Initial and Last Documented VS:
Initial Vital Signs
Temp Pulse Resp BP Pulse Ox
98 F 112 18 151/105 95
06/23/25 18:15 06/23/25 18:15 06/23/25 18:15 06/23/25 18:15 06/23/25 18:15
Last Documented Vital Signs
Temp Pulse Resp BP Pulse Ox
98 F 85 15 140/101 93
06/23/25 18:15 06/24/25 06:00 06/24/25 06:00 06/24/25 06:00 06/24/25 06:00
<Solange Bernal PA-C - Last Filed: 06/24/25 07:57>
*Pulse Oximetry
SaO2: 95
Oxygen Mode of Delivery: Room air
Patient hypoxic: no
*Critical Care Note
Total Time (30-74mins, 75-104mins- exclusive of procedures): Not Applicable
ED Attending Note
<Solange Bernal PA-C - Last Filed: 06/24/25 07:57>
-
Portions of this chart may have been created with voice recognition software.� Occasional wrong word or��sound alike� substitutions may have occurred due to the inherent limitations of voice recognition software.
<Charlie James DO - Last Filed: 06/24/25 03:11>
ED Attending Note
Patient seen and examined by attending physician: Yes
I performed the substantive portion of visit, reviewed & personally made and approve the management plan that is documented in note by myself or CHALINO.: Yes
ED Attending Note:
Pleasant 41-year-old male presents with GI bleeding and lower abdominal pain. CT of the abdomen pelvis with contrast shows no acute findings and no signs of active GI bleed. Patient to be started on Protonix and admitted to the hospitalist
service. Patient was seen in conjunction with the PA. I have reviewed her history and treatment plan. On independent physical exam patient awake alert and oriented x 3, minimal to no acute distress. He is resting comfortably. Good bowel sounds
x 4 quadrants. Minimal diffuse tenderness to palpation in the abdomen.
Discharge Plan
Departure
Patient Disposition: Admit
Date of Disposition: 06/24/25
Time of Disposition: 02:55
Admit to: Med/Surg
Presentation/result/management discussed w/ accepting MD/DO: Hospitalist
Condition: Fair
Discharge Problem:
Acute lower gastrointestinal bleeding
Interventions
Interventions:
*Risk Screen - Suicide Last Done: 06/23/25 18:16
*General Assessment Last Done: 06/23/25 22:53
*Neglect/Abuse Screening Last Done: 06/23/25 18:16
*ED- Fall Risk Assessment Last Done: 06/23/25 22:53
*ED COVID-19 Vaccine History Last Done: 06/23/25 22:53
*ED Influenza Vaccine History Last Done: 06/23/25 22:53
WQ-Ntgcfa-Qpwjeaoivs Assessment Last Done: 06/24/25 03:32
ED- Cardiac Assessment Last Done: 06/24/25 03:32
ED- Pulmonary Assessment Last Done: 06/24/25 03:30
[2025-06-23 23:13] VITALS: BMI 41.3
[2025-06-23] MEDS: TYLENOL 1000 MG PO (23:27)
[2025-06-23] MEDS: NSS 500 IV (23:31)
[2025-06-23 23:50] LABS: Lipase 166 U/L (23-300)
[2025-06-24] VITALS (23 sets, daily range): BP systolic 92–167; BP diastolic 61–117; PULSE 80–105; BMI 39.6
--- NOTE | 2025-06-24 02:30 | DOWNTIME ---
There was a [employer] [facility]ist[facility] Downtime on 06/24/2025 from 0100 to 06/24/2025 at 0215. Downtime documentation of patient's care, including medication administrations, has been reconciled in the electronic record per guidelines. Refer to the
patient's paper chart under the miscellaneous tab to see printed paper medication records and downtime forms.
[2025-06-24] MEDS: PROTONIX IV 40 MG IV ×2 (03:20→08:44)
[2025-06-24] MEDS: PEPCID 20 MG IV (03:21)
--- NOTE | 2025-06-24 03:44 | HPS.HSE ---
Family Physician
-
Family Physician: Lexx Vitale
Chief Complaint
-
Abd Pain / Rectal Bleeding
History of Present Illness
Patient is a 49y M with PMH significant for hypertension, diverticular disease and chronic pain syndrome who presents to ED complaining of abdominal pain and rectal bleeding. Patient complains of RLQ abdominal pain x several days. He states
that this has been accompanied by BRBPR and small clots. This occurs with BM, but also with sitting on the toilet to urinate. He denies any recent straining, constipation, etc. He takes Senna-S and Movantik chronically.
Patient denies any emesis. No fevers / chills.
He has had prior similar admissions - most recently in February of this year.
He had colonoscopy in 2022 which showed diverticuli, hemorrhoids and a rectal polyps. He has not had repeat study since that time.
Medical History
Past Medical History
Past Medical History: Reports Other
Additional Past Medical History:
Hypertension
Polysubstance abuse
Mood disorder
Seizure disorder
COPD
Hepatic steatosis
History of hepatosplenomegaly
Past Surgical History: Reports None
Social History
Tobacco: Smoker (Current every day smoker)
Alcohol: None
Drug: Other (Denies drug use - though history lists polysubstance abuse.)
Family History
Family History: Not pertinent
Allergies / Home Medications
Allergies reflects when Allergies were last updated in [facility].
Home Medications with original date entered in [facility]
Allergy/Medication List:
Allergies
Allergy/AdvReac Type Severity Reaction Status Date / Time
No Known Allergies Allergy Verified 10/06/22 22:28
Home Medications
pregabalin 300 mg capsule (Lyrica) 300 mg PO BID Pain 04/22/22
albuterol sulfate 90 mcg/actuation aerosol inhaler 1 inh inhalation Q4HPRN PRN SOB 06/24/25
buprenorphine 8 mg-naloxone 2 mg sublingual tablet 1 tab sublingual BID 06/24/25
clonazepam 1 mg tablet 1 mg PO TID 06/24/25
duloxetine 60 mg capsule,delayed release 60 mg PO BID 06/24/25
mirtazapine 30 mg tablet 30 mg PO HS 06/24/25
naloxegol 25 mg tablet (Movantik) 25 mg PO DAILY 06/24/25
sennosides 8.6 mg-docusate sodium 50 mg tablet (Senexon-S) 1 tab PO BID 06/24/25
Review of Systems
-
History Source: Patient
A 12 point ROS was completed and negative except as noted: Yes
Constitutional: Reports Fatigue; Denies Fever or Chills
Respiratory: Denies Cough or Trouble Breathing
Cardiac: Denies Chest Pain or Palpitations
Abdomen/GI: Reports Abdominal Pain, Nausea and Bloody Stools; Denies Vomiting, Diarrhea, Constipated, Black Stools or Anorexia
: Denies Dysuria or Frequency
Musculoskeletal: Denies Joint Pain or Edema
Neurological: Denies Dizzy or Headache
Psych: Denies Depression or Anxiety
Physical Exam
Vital Signs
Vital Signs
Temp Pulse Resp BP Pulse Ox
98 F 95 14 136/96 94
06/23/25 18:15 06/24/25 00:56 06/24/25 00:56 06/24/25 03:00 06/24/25 03:30
Physical Exam
General: Other (49y M appears older than stated age. Somewhat lethargic / sluggish.)
HEENT: Moist mucous membranes and Other (Thick neck.)
Respiratory: Other (Scattered squeaks / wheezes.)
Cardiac: S1/S2 and Regular Rhythm; No Murmur
GI: Other (Abdomen is obese. RLQ tenderness with voluntary guarding.)
Musculoskeletal: No Clubbing, No Cyanosis and No Edema
Laboratory Results
-
06/23/25 18:24
06/23/25 18:24
Laboratory Results
Total Bilirubin 0.4 mg/dl (0.2-1.3) 06/23/25 18:24
AST 22 U/L (17-59) 06/23/25 18:24
ALT 29 U/L (0-50) 06/23/25 18:24
Alkaline Phosphatase 95 U/L (38-126) 06/23/25 18:24
Lipase 166 U/L (23-300) 06/23/25 18:24
Impression/Plan
-
A/P: Patient is a 49y M with PMH significant for hypertension, COPD and chronic pain syndrome / substance use disorder who presents to ED complaining of abdominal pain and rectal bleeding.
Abdominal Pain
Rectal Bleeding
- Admit for further evaluation and treatment.
- CT done in the ED with no acute intra-abdominal pathology and no evidence of active / ongoing GI blood loss.
- Hemodynamically stable. Hgb is 16.
- Similar prior admissions.
- Follow H&H for any changes.
- Monitor for any further bleeding episodes.
- GI eval for additional recommendations.
Chronic Pain / Substance Use Disorder
- Continue usual outpatient medications with no changes.
- Would avoid additional sedating meds, opioids, etc.
COPD
- Scattered wheezes on exam. Hypoxemia at rest / sleep.
- Note that similar hypoxemia noted during prior admissions.
- Not on home O2, PAP therapy, etc.
- Supplemental O2 as needed.
- Monitor for increased somnolence. VBG if changes in mental status.
Morbid Obesity due to excess calories
- Affects all aspects of care.
- Encourage healthy diet and increased activity with goal of weight loss.
DVT Prophylaxis: SCDs
Code Status: Full
[2025-06-24] MEDS: TYLENOL 650 MG PO ×2 (06:10→14:50)
[2025-06-24 06:33] LABS: Hematocrit 43.5 % (39.0-52.0); Hemoglobin 14.5 g/dL (13.0-18.0); Mean Corp Hgb Conc. 33.3 g/dL (33.0-37.0); Mean Corpuscular Volume 94.0 fL (80.0-94.0); Platelet Count 161 10^3/uL (130-400); Red Cell Dist. Width 14.5 % (11.5-14.5)
--- NOTE | 2025-06-24 06:36 | CON.GI ---
Addendum entered and electronically signed by Geovanna Sawyer DO 06/24/25 13:42:
The patient was seen and examined by me independently in collaboration with the nurse practitioner.
Past medical history/social history/medications/allergies/family history reviewed.
Lab data and imaging data reviewed.
Meño Loja is a 49 y.o. obese male w/ pmhx COPD, seizure ds, fatty liver, polysubstance abuse, constipation admitted with rectal bleeding. He was seen in February for similar presntation, had stable hemoglobin, recommended outpatient f/u and
multiple attempts were made to arrange for f/u (voicemails and a letter was mailed to him) offering appointment but he failed to follow-up. He is able to move his bowels twice daily with movantik and dulcolax/senna. Last BM was yesterday. He had
abdominal pain on admission, states that has resolved. He also has audbile wheezing on exam, but denies having any difficulty breathing right now.
He had a colonoscopy in [address] Cutler, fair prep, diverticulosis, internal hemorrhoids, 5 mm hyperplastic polyp. Reportedly had a repeat colonsocopy with Dr. Sagastume.
Hemoglobin is stable at 16. Suspect hemorrhoidal vs. diverticular, though, less likely given no drop in hemoglobin.
No plans for inpatient GI evaluation. Recommend addressing respiratory status, would need pulmonary clearance for outpatient colonoscopy.
A/P:
-okay for diet given no plans for GI eval
-anusol supp.
-bowel regimen, continue movantik, add miralax prn
GI will sign off, please call with questions.
Addendum entered and electronically signed by SHANIKA Jackson 06/24/25 13:28:
if colon needed will need pulm optimization prior to scope with noted wheezing on exam
Original Note:
Consultation
-
Date/Time Consultation Requested: 06/24/25 3540
Date/Time Consultation Performed: 06/24/2530
Requesting Provider: Emmanuel Booker DO
Performing Provider: SHANIKA Lopez Jen Schwartz, DO
Reason for Consultation: rectal bleeding
Medical History
Chief Complaint / HPI
Chief Complaint: Abdominal pain and rectal bleeding
History of Present Illness:
49-year-old male, smoker, history of COPD, seizure ds, fatty liver, mood disorder, obesity, polypsubstance abuse in past with presenting with complaints of abdominal pain and rectal bleeding. Pt was seen by GI in past and in February seen by medical
team and arranged for OP follow up but pt did not set up appt. He was seen by GI in 2021 admission with similar complaints. A that time CT scan at that time showed possible colonic lesions in the right and proximal transverse colon, subsequent
colonoscopy with fair prep showed diverticulosis, internal hemorrhoids and 5 mm rectal polyp bx. Repeat for suggested in 1 year pt was not sure if completed with known GI MD Dr. Cordero in [place].
In review with patient symptoms stated several days ago with abdominal pain and bleeding. He reports red and dark red stools every this he uses toilet with stool or urination. He states daily soft stools with use of Movantik and dulcolax/senna
on a regular basis. He also admits to lower abdominal pain. Pain on constant and difficulty to say what makes pain better or worse. He denies odynophagia, dysphagia, GERD, nausea, vomiting, diarrhea or black stools. CT was completed on admission
with final read pending. Prelimiary no acute finding no active GI bleeding. hepatic steatosis and DDD. On admission hbg 16.1.
Past Medical History
Past Medical History: COPD, HTN, Hypercholesterolemia, Seizures, Psychiatric (mood disorder) and Other (fatty liver polysubstance abuse, obesity )
Past Surgical History: None
Social History
Tobacco: Smoker
Alcohol: None
Drug: Former User
Living: With Family (parents )
Employment: Disabled
Family History
Family History: Other (No FH of colon cancer)
Allergies / Home Medications
Allergy/AdvReac Type Severity Reaction Status Date / Time
No Known Allergies Allergy Verified 10/06/22 22:28
�Medication �Instructions �Recorded
pregabalin 300 mg capsule (Lyrica) 300 mg PO BID Pain 04/22/22
albuterol sulfate 90 mcg/actuation 1 inh inhalation Q4HPRN PRN SOB 06/24/25
aerosol inhaler
buprenorphine 8 mg-naloxone 2 mg 1 tab sublingual BID 06/24/25
sublingual tablet
clonazepam 1 mg tablet 1 mg PO TID 06/24/25
duloxetine 60 mg capsule,delayed 60 mg PO BID 06/24/25
release
mirtazapine 30 mg tablet 30 mg PO HS 06/24/25
naloxegol 25 mg tablet (Movantik) 25 mg PO DAILY 06/24/25
sennosides 8.6 mg-docusate sodium 1 tab PO BID 06/24/25
50 mg tablet (Senexon-S)
Review of Systems
-
History Source: Patient
Constitutional: Reports Other (sweats )
EENT: Reports No Symptoms
Respiratory: Reports Other (chronic wheezing)
Cardiac: Reports No Symptoms
Abdomen/GI: Reports Abdominal Pain, Constipated (hx on chronic laxative regiment ) and Bloody Stools (red and dark red )
: Reports No Symptoms
Musculoskeletal: Reports Other (chronic joint pains )
Skin: Reports No Symptoms
Neurological: Reports Weakness
Endocrine: Reports No Symptoms
Hematologic/Lymphatic: Reports Bleeding
Vital Signs
Temp Pulse Resp BP Pulse Ox
98 F 85 15 140/101 93
06/23/25 18:15 06/24/25 06:00 06/24/25 06:00 06/24/25 06:00 06/24/25 06:00
Physical Exam
Exam
General: Well Developed, Well Nourished and Other (some sleepiness but awakens to voice )
HEENT: Normocephalic and Anicteric
Respiratory: Wheezes
Cardiac: Regular Rhythm
GI: Soft, Non Distended and Tender (lower abdomen )
Rectal: Other (no hemorrhoids, no stool in rectaal vault-- limited exam with body habitus and ability to turn-- assist with RN for exam )
Musculoskeletal: No Clubbing and No Cyanosis
Skin: Warm and Dry
Neuro: Other (awakens to voice)
Psych: Calm
Results
WBC 8.5 10^3/uL (4.8-10.8) 06/24/25 06:04
Hgb 14.5 g/dL (13.0-18.0) 06/24/25 06:04
Hct 43.5 % (39.0-52.0) 06/24/25 06:04
MCV 94.0 fL (80.0-94.0) 06/24/25 06:04
Plt Count 161 10^3/uL (130-400) D 06/24/25 06:04
Absolute Neuts (auto) 6.4 10^3/uL (1.4-6.5) 06/23/25 18:24
Sodium 141 mmol/L (135-145) 06/23/25 18:24
Potassium 4.2 mmol/L (3.5-5.1) 06/23/25 18:24
Chloride 97 mmol/L (98-107) L 06/23/25 18:24
Carbon Dioxide 38 mmol/L (22-30) H 06/23/25 18:24
BUN 10 mg/dl (9-20) 06/23/25 18:24
Creatinine 0.9 mg/dL (0.7-1.3) 06/23/25 18:24
Calcium 9.6 mg/dl (8.4-10.2) 06/23/25 18:24
Total Bilirubin 0.4 mg/dl (0.2-1.3) 06/23/25 18:24
AST 22 U/L (17-59) 06/23/25 18:24
ALT 29 U/L (0-50) 06/23/25 18:24
Alkaline Phosphatase 95 U/L (38-126) 06/23/25 18:24
Lipase 166 U/L (23-300) 06/23/25 18:24
Diagnostic Image Results:
CT A/p pending Prelimiary no acute finding no active GI bleeding. hepatic steatosis and DDD.
Prior GI Procedures:
EGD:none
Colonoscopy: Dr.Do kyle prep showed diverticulosis, internal hemorrhoids and 5 mm rectal polyp bx. bx HP ?repeated Dr. Isaías Sagastume
Assessment / Plan
-
49-year-old male, smoker, history of COPD, seizure ds, fatty liver, mood disorder, obesity, polypsubstance abuse in past with presenting with complaints of abdominal pain and rectal bleeding. Pt was seen by GI in past and in February seen by medical
team and arranged for OP follow up but pt did not set up appt. He was seen by GI in 2021 admission with similar complaints. A that time CT scan at that time showed possible colonic lesions in the right and proximal transverse colon, subsequent
colonoscopy with fair prep showed diverticulosis, internal hemorrhoids and 5 mm rectal polyp bxHP. Repeat for suggested in 1 year pt was not sure if completed with known GI MD Dr. Cordero in [place]. In review with patient symptoms stated several
days ago with abdominal pain and bleeding. He reports red and dark red stools every this he uses toilet with stool or urination. He states daily soft stools with use of Movantik on a regular basis. He also admits to lower abdominal pain. Pain on
constant and difficulty to say what makes pain better or worse. He denies odynophagia, dysphagia, GERD, nausea, vomiting, diarrhea or black stools. CT was completed on admission with final read pending. Preliminary no acute finding no active GI
bleeding. hepatic steatosis and DDD. On admission hbg 16.1.
-lower abdominal pain
-rectal bleeding
-wheezing on exam
-hx rectal bleeding in past colon 2021 with diverticulosis, hemorrhoids, HP rectal polyp
other med problems:
smoker, history of COPD, seizure ds, fatty liver, mood disorder, polypsubstance abuse chronic pain, obesity
PLAN:
etiology of bleeding related to diverticular source, hemorrhoids, constipation related vs other
would monitor stools over next 24 hours
if continued bleeding large volume consider CTA if persistent bleeding consider colonoscopy -- if bleeding stops OP follow up
await final reading of CT
ok for clear diet
trend hbg
ok to continue laxative regiment -- pt may bring Movontik from home if able --
will add Miralax PRN if needed, pt with hx IH will also add Anusol PRN if bleeding persists
monitor resp status per primary team as continued wheezing on exam
OP follow up with Dr. Gil Sagastume known GI
-
-
Thank you for consultation and allowing me to participate in the patient's care. Please call the rehabilitation program coordinator GI physician during the after hours with any questions or concerns.
[2025-06-24 06:51] LABS: Blood Urea Nitrogen 9 mg/dl (9-20); Calcium 8.2 mg/dl (8.4-10.2); Carbon Dioxide 34 mmol/L (22-30); Chloride 102 mmol/L (98-107); Estimated Creatinine Clearance > 125 ml/min; Glucose 101 mg/dl (70-99); Potassium 3.7 mmol/L (3.5-5.1); Sodium 140 mmol/L (135-145); eGFR > 60.00
--- NOTE | 2025-06-24 07:36 | W.PN.HOSP.TC ---
Today's Communication/Plan
-
duoneb
Monitor stools for any additional blood
H&H at 2
Assessment / Plan
Assessment / Plan
Patient is a 49y M with PMH significant for hypertension, COPD and chronic pain syndrome / substance use disorder who presents to ED complaining of abdominal pain and rectal bleeding.
#Abdominal Pain
#Rectal Bleeding
- Diverticular dx vs hemorrhoids vs constipation related vs other
- CT done in the ED with no acute intra-abdominal pathology and no evidence of active / ongoing GI blood loss.
- Hemodynamically stable. Hgb was 16.1 on arrival and repeat 14.5. Will recheck at 2 PM
- Similar prior admissions.
- Follow H&H for any changes.
- Monitor for any further bleeding episodes.
- GI input appreciated
- Clear diet for now
- monitor stools over next 24 hours
- if nor additional blood in the stools, outpatient follow-up with GI
#Chronic Pain / Substance Use Disorder
# mood disorder
- Continue usual outpatient medications with no changes.
- Would avoid additional sedating meds, opioids, etc.
#COPD
- Scattered wheezes on exam. Hypoxemia at rest / sleep. Currently on 2 L O2 via nasal cannula
- Note that similar hypoxemia noted during prior admissions.
- Not on home O2, PAP therapy, etc.
- one duoneb
- Monitor for increased somnolence. VBG if changes in mental status.
#Morbid Obesity due to excess calories
- Affects all aspects of care.
- Encourage healthy diet and increased activity with goal of weight loss.
DVT Prophylaxis: SCDs
Code Status: Full
Anticipated Discharge: 24 - 48 hours
Subjective/Interval History
-
Date of Service: June 24, 2025
AFVSS. States that he is feeling slightly better now. Denies any nausea or vomiting
Objective Data
-
Labs:
Laboratory Results
06/24/25
06:04
WBC 8.5
Hgb 14.5
Hct 43.5
Plt Count 161 D
Sodium 140
Potassium 3.7
Chloride 102
Carbon Dioxide 34 H
BUN 9
Creatinine 0.8
Glucose 101 H
Calcium 8.2 L
Vital Signs:
Vital Signs
Temp Pulse Resp BP Pulse Ox
98 F 85 15 140/101 93
06/23/25 18:15 06/24/25 06:00 06/24/25 06:00 06/24/25 06:00 06/24/25 06:00
Review of Systems
-
History Source: Patient
Respiratory: Denies Cough
Cardiac: Denies Chest Pain
Abdomen/GI: Reports Abdominal Pain and Bloody Stools
Neuro: Denies Headache
Physical Exam
-
General: Comfortable and Morbidly Obese
Respiratory: Clear to Auscultation
Cardiac: Regular Rhythm
GI: Soft, Nontender and No Hernias
Skin: Warm
Neuro: Awake, Alert and Oriented
Psych: Calm
Data Reviewed
-
CT Scan: Report Reviewed by me, Discussed with Physician and Discussed with Patient
Labs: Labs Reviewed by me, Discussed with Physician and Discussed with Patient
[2025-06-24] MEDS: DUONEB 3 ML INH ×4 (08:36→19:51)
[2025-06-24] MEDS: LYRICA 300 MG PO ×2 (08:43→20:33)
[2025-06-24] MEDS: MOVANTIK 25 MG PO (08:43)
[2025-06-24] MEDS: CYMBALTA DELAYED RELEASE 60 MG PO ×2 (08:43→20:29)
[2025-06-24] MEDS: NSS (PRESERVATIVE FREE) 10 ML IV (08:44)
[2025-06-24] MEDS: SENOKOT-S 1 TABLET PO ×2 (08:44→20:29)
[2025-06-24] MEDS: KLONOPIN 1 MG PO ×3 (08:44→20:36)
[2025-06-24] MEDS: DUONEB INH (11:04)
--- NOTE | 2025-06-24 12:19 | EDCM ---
CM reviewed chart and met with pt bedside in ED. Pt lives with his father and stepmother in apartment. 10 steps down to enter.
Independent in ADLs, personal care and ambulation at baseline. Still drives.
Confirms prescription coverage.
Hx [facility], no hx SNF.
PCP: Lexx Vitale
Pharmacy: [facility]
Anticipate discharge home, CM will continue to follow for any discharge planning needs.
[2025-06-24 14:05] LABS: Hematocrit 43.6 % (39.0-52.0); Hemoglobin 14.9 g/dL (13.0-18.0)
[2025-06-24] MEDS: TORADOL 15 MG IV ×2 (14:49→20:33)
[2025-06-24] MEDS: REMERON 30 MG PO (20:36)
[2025-06-25 03:04] VITALS: BP 124/81
[2025-06-25 06:00] VITALS: BMI 39.6
[2025-06-25 07:00] VITALS: BP 118/83
[2025-06-25] MEDS: LYRICA 300 MG PO (07:23)
[2025-06-25] MEDS: MOVANTIK 25 MG PO (07:23)
[2025-06-25] MEDS: CYMBALTA DELAYED RELEASE 60 MG PO (07:23)
--- NOTE | 2025-06-25 07:23 | W.PN.HOSP.TC ---
Today's Communication/Plan
-
wean 02 as tolerated
diet advancement per GI
labs in the AM
Assessment / Plan
Assessment / Plan
Patient is a 49y M with PMH significant for hypertension, COPD and chronic pain syndrome / substance use disorder who presents to ED complaining of abdominal pain and rectal bleeding.
#Abdominal Pain
#Rectal Bleeding
- Diverticular dx vs hemorrhoids vs constipation related vs other
- CT done in the ED with no acute intra-abdominal pathology and no evidence of active / ongoing GI blood loss.
- Hemodynamically stable. Hgb was 16.1 on arrival and reamained stable around 14.5
- Similar prior admissions.
- Monitor for any further bleeding episodes.: denies any additional in the hosp
- GI input appreciated
- Clear diet for now; can advance after GI eval today
- if no additional blood in the stools, outpatient follow-up with GI
#Chronic Pain / Substance Use Disorder
# mood disorder
- Continue usual outpatient medications with no changes.
- Would avoid additional sedating meds, opioids, etc.
#COPD
- Scattered wheezes on exam. Hypoxemia at rest / sleep. Currently on 2 L O2 via nasal cannula
- Note that similar hypoxemia noted during prior admissions.
- Not on home O2, PAP therapy, etc.
- duoneb in hosp
- Monitor for increased somnolence. VBG if changes in mental status.
- currently on 2 L NC o2; wean as tolerated
#Morbid Obesity due to excess calories
- Affects all aspects of care.
- Encourage healthy diet and increased activity with goal of weight loss.
DVT Prophylaxis: SCDs
Code Status: Full
Anticipated Discharge: Within 24 hours
Subjective/Interval History
-
Date of Service: June 25, 2025
AFVSS. offers no new complaints. states he did nto notice any more blood [place]
Objective Data
-
Labs:
Laboratory Results
06/25/25
06:00
WBC Pending
Hgb Pending
Hct Pending
Plt Count Pending
Sodium Pending
Potassium Pending
Chloride Pending
Carbon Dioxide Pending
BUN Pending
Creatinine Pending
Glucose Pending
Calcium Pending
Vital Signs:
Vital Signs
Temp Pulse Resp BP Pulse Ox
97.3 F 72 18 124/81 97
06/25/25 03:04 06/25/25 03:04 06/25/25 03:04 06/25/25 03:04 06/25/25 03:04
Review of Systems
-
History Source: Patient
Respiratory: Denies Cough
Cardiac: Denies Chest Pain
Abdomen/GI: Denies Abdominal Pain, Nausea, Vomiting or Bloody Stools
Neuro: Denies Headache
Physical Exam
-
General: Comfortable and Morbidly Obese
Respiratory: Clear to Auscultation and Non Labored Respirations
Cardiac: Regular Rhythm
GI: Soft, Nontender, Nondistended and No Hernias
Skin: Warm
Neuro: Awake, Alert and Oriented
Psych: Calm
Data Reviewed
-
Labs: Labs Reviewed by me, Discussed with Physician and Discussed with Patient
[2025-06-25] MEDS: NSS (PRESERVATIVE FREE) 10 ML IV (07:24)
[2025-06-25] MEDS: SENOKOT-S 1 TABLET PO (07:24)
[2025-06-25] MEDS: KLONOPIN 1 MG PO (07:24)
[2025-06-25] MEDS: PROTONIX IV 40 MG IV (07:24)
[2025-06-25] MEDS: DUONEB 3 ML INH ×2 (07:25→11:32)
[2025-06-25 08:38] LABS: Hematocrit 44.8 % (39.0-52.0); Hemoglobin 14.6 g/dL (13.0-18.0); Mean Corp Hgb Conc. 32.6 g/dL (33.0-37.0); Mean Corpuscular Volume 95.5 fL (80.0-94.0); Nucleated Red Blood Cells % 0 % (-); Platelet Count 158 10^3/uL (130-400); Red Cell Dist. Width 14.4 % (11.5-14.5)
[2025-06-25 09:13] LABS: Blood Urea Nitrogen 12 mg/dl (9-20); Calcium 8.8 mg/dl (8.4-10.2); Carbon Dioxide 35 mmol/L (22-30); Chloride 98 mmol/L (98-107); Estimated Creatinine Clearance > 125 ml/min; Glucose 100 mg/dl (70-99); Potassium 3.7 mmol/L (3.5-5.1); Sodium 138 mmol/L (135-145); eGFR > 60.00
[2025-06-25 11:34] VITALS: BP 133/76
--- NOTE | 2025-06-25 12:35 | PTCARENOTE ---
patient requesting to leave AMA due to family emergency, patient states his father is being helicoptered to the [facility] in [place]. MD Guzman notified. patient signed AMA form
--- NOTE | 2025-06-25 12:40 | CM ---
Discussed w/ nursing, patient plan to leave AMA today due to an emergency, his father is being helicoptered to a [facility]
--- NOTE | 2025-06-25 13:04 | W.DCSUMMARY ---
Discharge Summary
Discharge Data
Date of Admission: 06/24/25
Date of Discharge: 06/25/25
-
Pending Results: No
Hospital Course
Discharging Physician : Shiva Reyes MD ; Saroj Romero DO
Disposition : Home- AMA
Primary care physician : Lexx Vitale
Principal Discharge diagnosis : Abdominal pain with rectal bleeding
Chronic Discharge diagnosis : Chronic pain/substance use disorder, COPD, morbid obesity
Hospital Course : 49y. With PMH significant for hypertension, diverticular disease and chronic pain syndrome who presented to ED complaining of abdominal pain and rectal bleeding. Patient complained of RLQ abdominal pain x several days. He
states that this has been accompanied by bright red blood per rectum and small clots. This occurs with BM, but also with sitting on the toilet to urinate. He denied any recent straining, constipation, etc. He takes Senna-S and Movantik
chronically. CAT scan was performed in the emergency department with shows no acute intra-abdominal pathology and no evidence of active/ongoing GI blood loss. Labs showed that hemoglobin was stable. Labs were also monitored periodically which
shows that hemoglobin remained stable. GI service was consulted for additional recommendation. On the physical exam he also had scattered wheeze when required supplemental O2 to maintain pulse ox > 92%. Given that there is no active or ongoing
bleeding GI recommended close monitoring and started with clear diet. He was also recommended for outpatient colonoscopy. For his respiratory status he received supplemental O2 as well as DuoNeb. IV ketorolac was used for pain control. Patient
noticed significant improvement in his symptoms and reported no additional blood in the stools. He left the hospital AMA on 08/25/2025 stating that there is a family emergency and his dad is being helicoptered to a hospital.
Important imaging findings : CT Abd/pelvis W Iv Cont
No CT evidence for an acute inflammatory process in the abdomen or pelvis.
Discharge Plan
-
Patient Disposition: Against Medical Advice
Referrals:
Lexx Vitale DO [Family Provider, Family Practice]
Prescriptions:
No Action
pregabalin [Lyrica] 300 mg Capsule
300 mg PO BID
sennosides-docusate sodium [Senexon-S] 8.6-50 mg tablet
1 tab PO BID
clonazepam 1 mg tablet
1 mg PO TID
mirtazapine 30 mg tablet
30 mg PO HS
albuterol sulfate 90 mcg/actuation HFA aerosol inhaler
1 inh INHALATION R Q4HPRN PRN (Reason: SOB)
duloxetine 60 mg capsule,delayed release(DR/EC)
60 mg PO BID
Movantik 25 mg tablet
25 mg PO DAILY
omeprazole 40 mg capsule,delayed release(DR/EC)
40 mg PO DAILY
dicyclomine 20 mg tablet
20 mg PO Q6HPRN PRN (Reason: stomach pain)
Discharge Date and Time
Discharge Date/Time: 06/25/25 13:45
Print Language: ARABIC
== END 2025-06-25 13:45 | disposition left against medical advice (07) | DRG 379 ==
LOC: 4 WEST ACU 03:57
PROVIDERS: Emergency Medicine; ADMITTING PHYSICIAN Hospitalist; ATTENDING PHYSICIAN Internal Medicine; EMERGENCY PHYSICIAN Student in an Organized Health Care Education/Training Program; FAMILY PHYSICIAN Family Medicine; OTHER PHYSICIAN Internal Medicine
DX: K57.91 Diverticulosis of intestine, part unspecified, without perforation or abscess with bleeding (principal); D72.829 Elevated white blood cell count, unspecified; F17.200 Nicotine dependence, unspecified, uncomplicated; F39 Unspecified mood [affective] disorder; J44.9 Chronic obstructive pulmonary disease, unspecified; E66.01 Morbid (severe) obesity due to excess calories; Z68.39 Body mass index [BMI] 39.0-39.9, adult; G89.4 Chronic pain syndrome; Z53.29 Procedure and treatment not carried out because of patient's decision for other reasons; R10.9 Unspecified abdominal pain
CPT/HCPCS: 74177; 80048; 80053; 83690; 85014; 85018; 85025; 85027; 94640; 96361; 96374; 96375; 99285; 99406; Q9967

== ENCOUNTER 2025-06-29 17:30 | Emergency (ER) | payer OTHER, SELFPAY ==
[2025-06-29 17:39] VITALS: BP 146/104
[2025-06-29 19:39] VITALS: BP 114/90
[2025-06-29 19:43] VITALS: BMI 40.4
[2025-06-29 19:57] LABS: Hematocrit 43.6 % (39.0-52.0); Hemoglobin 14.4 g/dL (13.0-18.0); Mean Corp Hgb Conc. 33.0 g/dL (33.0-37.0); Mean Corpuscular Volume 91.6 fL (80.0-94.0); Nucleated Red Blood Cells % 0 % (-); Platelet Count 213 10^3/uL (130-400); Red Cell Dist. Width 14.4 % (11.5-14.5)
--- NOTE | 2025-06-29 19:59 | ED.GENMED ---
History of Present Illness
General
Chief Complaint: Rectal Bleeding
Time Seen by Provider: 06/29/25 19:59
History of Present Illness
History of Present Illness:
FOCUSED PAST MEDICAL HISTORY
- Diverticular disease, high blood pressure
REVIEW OF OLD RECORDS
- The patient was admitted here 06/24/25 and signed out AMA the following day. At that time he was complaining of right lower quadrant pain over several days and has chronically been taking senna S and Movantik for opioid-induced constipation. CTA
at that time showed no ongoing blood loss.
Note:
CHIEF COMPLAINT(S)
Abdominal pain and rectal bleeding.
HISTORY OF PRESENT ILLNESS
The patient is a 49-year-old male who presents with complaints of significant abdominal pain and rectal bleeding that began approximately two weeks ago. He reports having been at the hospital recently but left suddenly to attend to a family
emergency involving his father. At his previous visit, the gastrointestinal (GI) team had suggested a liquid diet and monitoring his oxygen levels, which previously had been an issue but are currently stable at 97%. He currently denies taking any
blood-thinning medications.
The patient describes the pain as worsening over time and notes that previous imaging studies, such as CT angiograms, did not reveal active bleeding. Despite this, he continues to test positive for blood. He also mentioned he is no longer taking
Suboxone. He expresses willingness to undergo another CT angiogram. His hemoglobin levels remain stable, not indicating an immediate need for transfusion.
He request something for pain however the patient has a history of substance abuse and was recently on Suboxone up until a month ago. His white count is normal. He has had several recent CTs. Will hold off on Narcan with analgesia but give a dose
of Toradol for now.
PAST MEDICAL AND SURGICAL HISTORY
Not fully detailed in conversation.
EXTERNAL RECORDS REVIEWED
Past information suggests stable hemoglobin and prior CT angiograms that did not show definitive active bleeding.
SOCIAL HISTORY
The patient resides in [place] and typically follows up with a GI doctor in [place]. He wants to avoid [facility].
MEDICATIONS
Currently takes Movantik.
REVIEW OF SYSTEMS
- Gastrointestinal: Reports rectal bleeding, previously addressed by the GI team with a liquid diet recommendation and further follow-up suggested.
- Respiratory: Previous concerns about oxygen levels, currently stable.
PHYSICAL EXAM
General: Alert, appears somewhat sedate at times but overall appears awake enough to make his own decisions.
Skin: Warm, dry.
Head: Normocephalic, atraumatic.
Neck: Supple, trachea midline.
Eye, Ears, Nose, Mouth, and Throat: Oral mucosa moist.
Cardiovascular: Normal peripheral perfusion, No edema.
Respiratory: Respirations are non-labored.
Gastrointestinal: Abdomen nondistended. Digital rectal examination reveals blood, which tested positive. Some vague diffuse abdominal tenderness
Back: Normal range of motion, Normal alignment.
Musculoskeletal: Normal ROM, normal strength.
Neurological: Alert and oriented to situation, No focal neurological deficit observed.
Psychiatric: Cooperative, appropriate mood & affect.
PROBLEM LIST
Acute: Lower back pain, Rectal bleeding, Positive blood on rectal examination.
PLAN
- A CT angiogram will be obtained to assess for ongoing bleeding.
- Consultation with the GI team to discuss further management.
DIFFERENTIAL DIAGNOSIS
The Differential Diagnosis includes, in no particular order and is not limited to:
1. Gastrointestinal bleed
2. Hemorrhoids
3. Colorectal cancer
4. Diverticulosis
5. Anal fissures
6. Inflammatory bowel disease (e.g., ulcerative colitis, Crohns disease)
7. Peptic ulcer disease
8. Arteriovenous malformation
9. Rectal ulcer syndrome
10. Ischemic colitis
RADIOLOGY
- CTA obtained�no GI hemorrhage noted, no evidence of diverticulitis
LABS
- Hemoglobin today is 14.4, 4 days ago was 14.6
UPDATE
- I discussed case with Dr. Raphael who suggest close outpatient management with GI and they may be able to see him as an outpatient urgently Dr. Raphael also suggested to hold off on CTA however the patient has ongoing pain which he states has been
worsening therefore we will reimage.
SUMMARY OF ENCOUNTER
The patient, a 49-year-old male, presented to the emergency department with significant lower back pain and rectal bleeding that began two weeks ago. Previous imaging such as CT angiograms did not reveal active bleeding, and the patients hemoglobin
levels remained stable. During this visit, a CT scan was performed, which did not show any signs of bleeding. The radiologist suggested minimal signs of diabetes but nothing conclusively problematic. Previous colonoscopy results were reviewed. The
patient was not showing signs of infection, and his hemoglobin levels were stable, not requiring transfusion. Given this stability, the decision was made to discharge the patient, with follow-up recommended through his GI specialist. Coordination
for an earlier appointment and potentially an outpatient colonoscopy were discussed.
DISPOSITION
Discharge.
ASSESSMENT
The patient is experiencing lower back pain and rectal bleeding, with stable hemoglobin levels and no active bleeding from recent imaging.
PLAN
Coordinate with the GI specialist for an earlier appointment and potentially schedule an outpatient colonoscopy.
INDEPENDENT REVIEW OF LABS AND INTERPRETATION OF TESTS
My independent review of the CT scan indicates no signs of active bleeding. Televised images suggest minimal diabetes, but this was not conclusively determined by the imaging.
FOLLOW-UP INSTRUCTIONS
Patient is advised to follow up with the GI specialist soon for further evaluation and to coordinate an outpatient colonoscopy if recommended.
MEDICAL DECISION-MAKING
1. Number and Complexity of Problems Addressed: Chronic conditions affecting care include suspected lower back pain and rectal bleeding. Differential Diagnosis: Gastrointestinal bleed, Hemorrhoids, Colorectal cancer, Diverticulosis, Anal fissures,
Inflammatory bowel disease (e.g., ulcerative colitis, Crohns disease), Peptic ulcer disease, Arteriovenous malformation, Rectal ulcer syndrome, Ischemic colitis.
2. Data:
- Category 1: Non-emergency department record reviewed included prior external imaging and colonoscopy.
- Category 3: Discussion of management occurred with the patients GI specialist for further care coordination.
3. Risk: Consideration of Admission/Observation: Escalation of care including admission/observation was considered given the patients pain and conditions. However, it was determined that outpatient management with close follow-up was sufficient due
to stable vital signs, stable hemoglobin levels, and patient agreement with the discharge plan.
DIAGNOSIS
- Rectal bleeding (ICD-10: K62.5)
- Abdominal pain
The patient's ED workup is relatively unremarkable. I did inform patient my plan was for discharge and before I was able to complete the discharge paperwork, the patient left. I did try to arrange close outpatient follow-up but he left before I
could finalize these plans and he left without taking the information for GI here.
Past History
Past History
ED Past Medical History: Psychiatric and Other (Diverticulitis)
ED Past Surgical History: None
Social History
Tobacco: Smoker
Alcohol: None
Drug: None
Living: with family
Phy Exam
Physical Exam
Physical Exam:
See HPI
Course
Orders/Labs/Results
Orders:
Orders
06/29/25 19:45
IV Insert/Care/Rem.- Treatment PRN
06/29/25 19:48
Type+Screen Urgent
Complete Blood Count/With Diff Urgent
Comprehensive Metabolic Panel Urgent
Lipase Urgent
06/29/25 20:08
CT Angio Abd/Pelvis w/wo IV [CT Abd/pelvis Angio W/wo Iv] Urgent
Comment:
Reason For Exam: recurrent GI bleeding
06/29/25 20:14
Ketorolac [Toradol] 15 mg IV NOW STA
Abnormal Lab Results
06/29/25
19:48
MPV 10.9 H fL
(7.4-10.4)
Absolute Monos (auto) 0.9 H 10^3/uL
(0.1-0.6)
Absolute Eos (auto) 0.8 H 10^3/uL
(0-0.7)
Eosinophils % 8.1 H %
(0-6)
Carbon Dioxide 34 H mmol/L
(22-30)
BUN 7 L mg/dl
(9-20)
Glucose 100 H mg/dl
(70-99)
06/29/25 19:48
06/29/25 19:48
Vital Signs
Initial and Last Documented VS:
Initial Vital Signs
Temp Pulse Resp BP Pulse Ox
36.9 C 98 20 146/104 100
06/29/25 17:39 06/29/25 17:39 06/29/25 17:39 06/29/25 17:39 06/29/25 17:39
Last Documented Vital Signs
Temp Pulse Resp BP Pulse Ox
36.9 C 98 20 105/70 90
06/29/25 17:39 06/29/25 17:39 06/29/25 17:39 06/29/25 22:00 06/29/25 22:15
*Pulse Oximetry
SaO2: 95
Oxygen Mode of Delivery: Room air
Patient hypoxic: no
*Critical Care Note
Total Time (30-74mins, 75-104mins- exclusive of procedures): Not Applicable
ED Attending Note
-
Portions of this chart may have been created with voice recognition software.� Occasional wrong word or��sound alike� substitutions may have occurred due to the inherent limitations of voice recognition software.
Discharge Plan
Departure
Patient Disposition: Home (Routine Discharge)
Date of Disposition: 06/29/25
Time of Disposition: 23:04
Patient with high blood pressure during this ER visit?: Yes
Discharge Problem:
Acute lower gastrointestinal bleeding
Instructions: Bloody Stools, Adult (DC)
Prescriptions:
No Action
pregabalin [Lyrica] 300 mg Capsule
300 mg PO BID
sennosides-docusate sodium [Senexon-S] 8.6-50 mg tablet
1 tab PO BID
clonazepam 1 mg tablet
1 mg PO TID
mirtazapine 30 mg tablet
30 mg PO HS
albuterol sulfate 90 mcg/actuation HFA aerosol inhaler
1 inh INHALATION R Q4HPRN PRN (Reason: SOB)
duloxetine 60 mg capsule,delayed release(DR/EC)
60 mg PO BID
Movantik 25 mg tablet
25 mg PO DAILY
omeprazole 40 mg capsule,delayed release(DR/EC)
40 mg PO DAILY
dicyclomine 20 mg tablet
20 mg PO QID
gemfibrozil 600 mg Tablet
600 mg PO BID
Trelegy Ellipta 100-62.5-25 mcg Blister With Device
1 inh INHALATION R DAILY
Referrals:
NONE,* [Active, Internal Medicine]
Geovanna Sawyer, [Active, Gastroenterology]
Activity Restrictions/Additional Instructions:
Hemoglobin normal
Interventions
Interventions:
*Risk Screen - Suicide Last Done: 06/29/25 17:39
*General Assessment Last Done: 06/29/25 17:39
*Neglect/Abuse Screening Last Done: 06/29/25 17:39
*ED- Fall Risk Assessment Last Done: 06/29/25 19:40
*ED COVID-19 Vaccine History Last Done: 06/29/25 17:39
*ED Influenza Vaccine History Last Done: 06/29/25 17:39
YP-Ixhfmm-Uwzdqjwtmr Assessment Last Done: 06/29/25 19:40
ED- Cardiac Assessment Last Done: 06/29/25 19:40
ED- Pulmonary Assessment Last Done: 06/29/25 19:40
Discharge Date and Time
Print Language: AZERI
[2025-06-29 20:00] VITALS: BP 126/88
[2025-06-29 20:17] LABS: ALT (SGPT) 26 U/L (0-50); AST (SGOT) 24 U/L (17-59); Albumin 4.2 g/dl (3.5-5.0); Alkaline Phosphatase 89 U/L (38-126); Blood Urea Nitrogen 7 mg/dl (9-20); Calcium 9.2 mg/dl (8.4-10.2); Carbon Dioxide 34 mmol/L (22-30); Chloride 100 mmol/L (98-107); Estimated Creatinine Clearance > 125 ml/min; Glucose 100 mg/dl (70-99); Lipase 70 U/L (23-300); Potassium 3.6 mmol/L (3.5-5.1); Sodium 137 mmol/L (135-145); Total Protein 7.1 g/dl (6.3-8.2); eGFR > 60.00
[2025-06-29] MEDS: TORADOL 15 MG IV (20:22)
[2025-06-29 21:07] VITALS: BP 104/77
[2025-06-29 22:00] VITALS: BP 105/70
== END 2025-06-29 23:11 | disposition home or self-care (01) ==
LOC: EMR 17:30
PROVIDERS: EMERGENCY PHYSICIAN Emergency Medicine; FAMILY PHYSICIAN Family Medicine
DX: K92.2 Gastrointestinal hemorrhage, unspecified (principal); R03.0 Elevated blood-pressure reading, without diagnosis of hypertension; K57.30 Diverticulosis of large intestine without perforation or abscess without bleeding; F17.200 Nicotine dependence, unspecified, uncomplicated; F19.11 Other psychoactive substance abuse, in remission
CPT/HCPCS: 99284; 96374; 74174; 80053; 83690; 85025; 86850; 86900; 86901; Q9967